=== PATIENT | female | born 1960 | race Caucasian/White ===

== ENCOUNTER → 2018-02-28 18:17 | Outpatient (CLI) | payer OTHER, SELFPAY ==
--- NOTE | 2018-02-28 18:24 | DI.MRI.S_ITS ---
PROCEDURE: MR LUMBAR SPINE WO CON INDICATIONS: LOW BACK PAIN TECHNIQUE: Noncontrast sagittal T1 spin echo and T2 fast echo, sagittal STIR, axial T1 and T2 fast spin echo through the lumbar spine. In cases with scoliosis, additional coronal T2 fast spin echo may be performed. COMPARISON: [facility], MR, L-SPINE WITHOUT CONTRAST, 02/20/2014, 7:57. FINDINGS: Image quality: Diagnostic. Spinal Cord: The imaged portions of the spinal cord are normal in size and signal. The conus medullaris is normal in position. Incidental note is made of a very small fatty filum terminale, which is best appreciated within the region of the sacrum. Paraspinous Soft Tissues: No paravertebral masses. Image soft tissues of the abdomen and pelvis are grossly unremarkable; however, not adequately evaluated on this exam. The abdominal aorta is normal in course and caliber. Bones: The vertebral body heights and marrow signal are within normal limits. There is no acute fracture or dislocation. No suspicious osseous lesions are identified. There is grade 1 anterolisthesis of L4 and L5, which is similar to the previous examination. No obvious pars interarticularis defects are identified. No additional areas of significant spondylolisthesis are identified. Lower thoracic levels: Disc height loss and a moderate posterior disc bulges are present at the levels of T10-T11 and T11-T12. This is more pronounced at the level of T11-T12 with moderate central canal stenosis present. No abnormal signal within the cord at this level is evident. There may be mild neural foraminal narrowing at these levels bilaterally. L1-L2: No significant disc bulge is present. There is mild facet arthrosis. There is no central canal or neural foraminal stenosis. L2-L3: There is disc desiccation and diffuse disc bulge with mild to moderate bilateral facet arthrosis. No central canal stenosis is identified. There is mild bilateral neural foraminal narrowing. The degree of facet arthropathy slightly more prominent on the current examination. L3-L4: There is disc desiccation and diffuse disc bulge with moderate bilateral facet arthrosis and ligamentum flavum laxity. These findings result in mild central canal stenosis and moderate bilateral neural foraminal narrowing. The degree of neural foraminal narrowing is less prominent on the current study. L4-L5: Grade 1 anterolisthesis of L4 and L5 is identified, which has not significantly progressed. Fatty degenerative endplate changes are identified at this location. There is no diffuse disc bulge and disc desiccation. Moderate to severe facet arthrosis is noted. These findings result in moderate to severe central canal stenosis and severe bilateral neural foraminal stenosis (right greater than left). These findings have not significantly progressed in the interim. L5-S1: There is disc desiccation and mild diffuse disc bulge with moderate to severe bilateral facet arthrosis (left greater than right close parentheses. These findings result in severe left and moderate right neural foraminal narrowing. No central canal stenosis is identified. These findings are slightly more prominent on the current study. IMPRESSION: 1. Advanced multilevel degenerative changes of the lumbar spine have mildly progressed in the interim. Overall, the degree of central canal and neural foraminal narrowing is relatively similar to the previous study. 2. No focal disc protrusions or extrusions. 3. Grade 1 spondylolisthesis at L4-5 is not significantly progressed. 4. Prominent posterior disc bulges at the imaged lower thoracic levels are not well characterize, but demonstrate areas of mild central canal narrowing. Dictated by: Raulito Mcmahon M.D. on 03/01/2018 at 9:25 Approved by: Raulito Mcmahon M.D. on 03/01/2018 at 9:35
== END ==
PROVIDERS: Family Provider Family Medicine; PCP Family Medicine; Visit Provider Family Medicine
DX: M51.36 Other intervertebral disc degeneration, lumbar region (principal); M43.16 Spondylolisthesis, lumbar region
CPT/HCPCS: 72148

== ENCOUNTER 2018-03-20 11:36 | Day surgery (SDC) | payer OTHER, SELFPAY ==
--- NOTE | 2018-03-20 | PATH_ITS ---
[facility] Accession Number: [id number] . 01 Material submitted: . PART A: COLON POLYP AT 30CM PART B: TRANSVERSE COLON POLYP . 02 Diagnosis: A. Colon, Polyp at 30 cm, Biopsy: Tubular adenoma. . B. Transverse Colon, Polyp, Biopsy: Tubular adenoma. MRV/03/22/2018 . 02 Electronically signed: . Larissa Santana MD, Pathologist NPI- [id number] . 01 Gross description: . Part A: COLON POLYP AT 30CM: Received in formalin is 1 fragment(s) of valles, soft tissue measuring 0.3 x 0.3 x 0.3 cm submitted entirely in 1 cassette(s) Part B: TRANSVERSE COLON POLYP: Received in formalin is 1 fragment(s) of valles, soft tissue measuring 0.6 x 0.4 x 0.3 cm which is bisected and submitted entirely in 1 cassette(s) /TRC /TRC . 02 Pathologist provided ICD-10: D12.6, D12.3 . 02 CPT . 487912, [id number] Performed at: 01 [facility] [address] [id number] MD Niraj Cazares MD Phone: [phone] Performed at: 02 [facility] [address] [place], [place] [id number] MD Adarsh Arzola MD Phone: [phone]
[2018-03-20 12:11] VITALS: BP 134/90; PULSE 67; RESP 16; TEMP 36.7; O2SAT 99; BMI 30.3
[2018-03-20] MEDS: SODIUM CHLORIDE 0.9% 1,000 ML 200 ML IV (12:11)
--- NOTE | 2018-03-20 13:25 | PM.HP.1 ---
History of Present Illness Date Patient Seen: 03/20/18 Time Patient Seen: 13:25 Chief complaint: [id number] SCREENING COLONOSCOPY Narrative: Marychuy 57-year-old lady here for her 2nd colonoscopy. She reports that she had a colonoscopy about 5 years ago. She reports that that time some benign polyps were removed. She denies any problems or symptoms related to the function of her GI tract. She reports she needs a colonoscopy as part of health maintenance program. Patient History Medical History History of colon polyps (Acute) Family & Social History Family History: Reviewed 03/20/18 by Deisy Vargas MD Social History: household members spouse Meds Home Medications Medication Instructions Recorded Confirmed Type gabapentin 300 mg PO TID 03/20/18 03/20/18 History meloxicam 7.5 mg PO DAILY 03/20/18 03/20/18 History Allergies Allergy/AdvReac Type Severity Reaction Status Date / Time codeine Allergy Unknown Unverified 03/20/18 12:20 Review of Systems Review of Systems All systems reviewed & are unremarkable except as noted in HPI and below Exam Vital Signs (past 8 hours): Vital Signs - 8 hr 03/20/18 12:11 Temperature 98.1 F Pulse Rate 67 Respiratory Rate 16 Blood Pressure 134/90 H Pulse Oximetry 99 Pulse Oximetry 99 Oxygen Delivery Method Room Air Narrative Exam Narrative: Very pleasant and healthy-appearing lady in no obvious distress HEENT: Normocephalic and atraumatic, pupils equal round reactive to light accommodation with anicteric sclera Lungs: Clear bilaterally Heart: Regular rate and rhythm Abdomen: Soft, nontender, active bowel sounds. Extremities: Warm and well perfused Assessment & Plan (1) Encounter for screening colonoscopy: Problem details: Personal history of colon polyps here for screening colonoscopy. We discussed the risks and benefits of the procedure the patient expressed a desire to continue Current visit: Yes Status: Acute Plan: Assessment/Plan Narrative: Personal history of colon polyps here for screening colonoscopy. We discussed the risks and benefits of the procedure the patient expressed a desire to continue
--- NOTE | 2018-03-20 13:28 | SUR.OPER ---
to endo from opd via cart respirations unlabored iv patent positioned per self for procedure
--- NOTE | 2018-03-20 13:29 | P.HP_ITS ---
History of Present Illness Date Patient Seen: 03/20/18 Time Patient Seen: 13:25 Chief complaint: [id number] SCREENING COLONOSCOPY Narrative: Marychuy 57-year-old lady here for her 2nd colonoscopy. She reports that she had a colonoscopy about 5 years ago. She reports that that time some benign polyps were removed. She denies any problems or symptoms related to the function of her GI tract. She reports she needs a colonoscopy as part of health maintenance program. Patient History Medical History History of colon polyps (Acute) Family & Social History Family History: Reviewed 03/20/18 by Deisy Vargas MD Social History: household members spouse Meds Home Medications Medication Instructions Recorded Confirmed Type gabapentin 300 mg PO TID 03/20/18 03/20/18 History meloxicam 7.5 mg PO DAILY 03/20/18 03/20/18 History Allergies Allergy/AdvReac Type Severity Reaction Status Date / Time codeine Allergy Unknown Unverified 03/20/18 12:20 Review of Systems Review of Systems All systems reviewed & are unremarkable except as noted in HPI and below Exam Vital Signs (past 8 hours): Vital Signs - 8 hr 3 03/20/18 12:11 Temperature 98.1 F Pulse Rate 67 Respiratory Rate 16 Blood Pressure 134/90 H Pulse Oximetry 99 Pulse Oximetry 99 Oxygen Delivery Method Room Air Narrative Exam Narrative: Very pleasant and healthy-appearing lady in no obvious distress HEENT: Normocephalic and atraumatic, pupils equal round reactive to light accommodation with anicteric sclera Lungs: Clear bilaterally Heart: Regular rate and rhythm Abdomen: Soft, nontender, active bowel sounds. Extremities: Warm and well perfused Assessment & Plan (1) Encounter for screening colonoscopy: Problem details: Personal history of colon polyps here for screening colonoscopy. We discussed the risks and benefits of the procedure the patient expressed a desire to continue Current visit: Yes Status: Acute Plan: Assessment/Plan Narrative: Personal history of colon polyps here for screening colonoscopy. We discussed the risks and benefits of the procedure the patient expressed a desire to continue
--- NOTE | 2018-03-20 13:55 | SUR.OPER ---
tolerated procedure well
--- NOTE | 2018-03-20 13:55 | PM.OP.1 ---
Operative Date/Time/Diagnoses - Date of procedure: 03/20/18 Time of procedure: 13:55 Pre-op diagnosis: Personal history of colon polyps Screening Post-op diagnosis: same Procedure & Clinicians Procedure: Colonoscopy to the cecum with polypectomy x2 Same procedure as scheduled: Yes Indications: Last colonoscopy 5 years ago with removal of benign polyps Surgeon: Deisy Vargas Click Yes if Unassisted: Yes Anesthesia Type: Sedation (Versed 4 mg; fentanyl 150 mcg) Operative Notes Findings: 1. Excellent prep 2. Two pedunculated polyps at 30 cm and mid transverse colon respectively. Both were removed with snare and cautery and retained for pathology. The 1st polyp was approximately 4 mm and the 2nd polyp was approximately 8 mm 3. No AV malformations 4. Minimal diverticulosis limited to the junction of the descending and sigmoid colons 5. Grade 1 internal hemorrhoids Closure Type: not applicable Specimen(s): other (1. Polyp at 30 cm removed with snare and cautery, 2. Polyp at mid transverse colon removed with snare cautery) Estimated Blood Loss (mL): 1 Procedure in detail: After obtaining informed consent, the patient was brought to the GI suite and placed in the left lateral decubitus position on the examination table. After placement of appropriate monitors, the patient was given incremental doses of Versed and Fentanyl until an appropriate level of sedation was achieved. A time out was held per SCOAP protocol. A digital rectal examination was performed and did not reveal any masses or obstructing lesions. The colonoscope was gently passed into the patient's anus and the entire colon navigated to the level of the cecum with minimal difficulty. Once in the cecum, the scope was withdrawn being sure to go before and beyond all mucosal folds and prominences and get an excellent examination. The findings are noted above. At the level of the rectal vault, the scope was retroflexed and the internal anal canal was examined. The scope was straightened and air aspirated from the colon. The instrument was removed from the patient's body and the procedure was concluded. The patient was allowed to awaken from sedation without difficulty and taken to the post-anesthesia care unit in good condition. Total sedation time 27 min Total withdrawal time 14 min Complications: none Condition: stable Disposition: PACU Plan for aftercare: 1. Discharge to home 2. Plan for next colonoscopy in 3 years due to the size of the 2nd polyp
[2018-03-20 13:58] VITALS: BP 97/63; PULSE 58; RESP 17; TEMP 36.2; O2SAT 97
[2018-03-20] MEDS: fentaNYL 250 MCG/5 ML INJ 150 MCG IV (13:58)
[2018-03-20] MEDS: MIDAZOLAM 5 MG/5 ML VIAL 4 MG IV (13:58)
[2018-03-20 14:01] VITALS: BP 109/77; PULSE 62; RESP 14; O2SAT 96
[2018-03-20 14:06] VITALS: BP 107/74; PULSE 55; RESP 14; O2SAT 96
[2018-03-20 14:22] VITALS: BP 112/76; PULSE 53; RESP 15; TEMP 36.3; O2SAT 96
== END 2018-03-20 14:35 | disposition home or self-care (01) ==
PROVIDERS: Family Provider Family Medicine; PCP Family Medicine; Visit Provider Surgery
PROC: 0DJD8ZZ Inspection of Lower Intestinal Tract, Via Natural or Artificial Opening Endoscopic (ICD-10-PCS; CPT 45378; principal; 2018-03-20 13:00)
DX: Z86.010 Personal history of colon polyps (principal); K57.30 Diverticulosis of large intestine without perforation or abscess without bleeding; K64.0 First degree hemorrhoids; D12.6 Benign neoplasm of colon, unspecified; D12.3 Benign neoplasm of transverse colon
CPT/HCPCS: 45385; 45380; 99152; 99153; J2250; J3010

== ENCOUNTER → 2018-07-17 19:07 | Outpatient (CLI) | payer OTHER, SELFPAY ==
--- NOTE | 2018-07-17 19:08 | DI.MRI.S_ITS ---
PROCEDURE: MR CERVICAL SPINE WO CON INDICATIONS: numbness in hands TECHNIQUE: Noncontrast sagittal T1 spin echo and T2 fast spin echo, sagittal STIR, foraminal oblique sagittal T2 fast spin echo, and axial gradient echo or T2 fast spin echo through the cervical spine. COMPARISON: [facility], CR, CERVICAL SPINE 2 OR 3 VIEWS, 05/27/2016, 14:38. [facility], MR, C-SPINE WITHOUT CONTRAST, 06/15/2016, 18:41. FINDINGS: Image quality: Excellent. Alignment and Curvature: There is trace C3-C4 retrolisthesis. There is trace C4-C5 anterolisthesis. Bones: Reactive endplate change is noted adjacent to the C5-C6 and C6-C7 discs. Anterior endplate osteophytes noted adjacent to the C3-C4, C5-C6, C6-C7 and C7-T1 discs. Spinal Cord: Visualized spinal cord has normal size and signal. No cerebellar tonsillar herniation. Paraspinous Soft Tissues: No paravertebral masses. Prevertebral soft tissues are normal in thickness. C2-C3: Slight loss of disc signal. No central stenosis. No neural foraminal narrowing. No neural impingement. C3-C4: Loss of disc signal and disc height. Moderate, diffuse disc bulge. Moderate narrowing of the central canal. Mild bilateral facet hypertrophy. Moderate bilateral uncovertebral joint hypertrophy. Moderate right and severe left neural foraminal narrowing with flattening deformity exiting left C4 nerve root. C4-C5: Loss of disc signal. Mild, diffuse disc bulge. Mild narrowing of the central canal. Mild bilateral facet hypertrophy. No neural foraminal narrowing. No neural impingement. C5-C6: Loss of disc signal and height. Mild, diffuse disc bulge. Mild to moderate narrowing of the central canal. Moderate right and mild left uncovertebral joint hypertrophy. Moderate right and mild left neural foraminal narrowing. No neural impingement. C6-C7: Loss of disc signal and height. Mild, diffuse disc bulge. Mild narrowing of the central canal. Mild left uncovertebral joint hypertrophy. Moderate left neural foraminal narrowing. No neural impingement. C7-T1: Loss of disc signal and height. Moderate, diffuse disc bulge. Mild ligamentum flavum hypertrophy. Moderate narrowing of the central canal. Mild bilateral facet hypertrophy. Mild bilateral uncovertebral joint hypertrophy. Severe bilateral neural foraminal narrowing with flattening deformity exiting C8 nerve roots. IMPRESSION: 1. Multilevel degenerative disc disease. 2. Multilevel facet arthropathy. 3. Moderate C3-C4 and C7-T1 central canal narrowing. Mild to moderate C5-C6 central canal narrowing. Mild C4-C5 and C6-C7 central canal narrowing. 4. Severe bilateral C7-T1 neural foraminal narrowing. Moderate right and severe left C3-C4 neural foraminal narrowing. Moderate right and mild left C5-C6 neural foraminal narrowing. Moderate left C6 on C7 neural foraminal narrowing. 5. Flattened deformity of the exiting left C4 nerve root and the exiting bilateral C8 nerve roots secondary to neural foraminal narrowing. Please correlate with clinical data. Dictated by: Mariam Mora MD, PhD on 07/18/2018 at 9:50 Approved by: Mariam Mora MD, PhD on 07/18/2018 at 10:00
== END ==
PROVIDERS: Family Provider Family Medicine; PCP Family Medicine; Visit Provider Physical Medicine & Rehabilitation
DX: M50.31 Other cervical disc degeneration, high cervical region (principal); M47.812 Spondylosis without myelopathy or radiculopathy, cervical region; M48.02 Spinal stenosis, cervical region; R20.0 Anesthesia of skin
CPT/HCPCS: 72141

== ENCOUNTER 2018-08-28 07:24 | Outpatient (CLI) | payer OTHER, SELFPAY ==
[2018-08-28] VITALS (9 sets, daily range): BP systolic 115–133; BP diastolic 74–87; PULSE 70–78; RESP 16–18; TEMP 36.1; O2SAT 97–98
--- NOTE | 2018-08-28 07:25 | DI.RAD.S_ITS ---
PROCEDURE: PAIN C/T INTERLAMINAR INJECT INDICATIONS: CERVICAL DISC DISPLACEMENT FINDINGS: Fluoroscopic spot filming was performed to verify placement of spinal needles at the C7-T1 level(s), as labeled on the films. Appropriate location(s) of the needle tip(s) was confirmed by injection of iodinated contrast. IMPRESSION: Fluoroscopy for pain management. Dictated by: Luis Reddy M.D. on 08/28/2018 at 14:54 Approved by: Luis Reddy M.D. on 08/28/2018 at 14:55
[2018-08-28] MEDS: MIDAZOLAM 5 MG/5 ML VIAL IV (08:37)
[2018-08-28] MEDS: IOPAMIDOL 15 ML VIAL 3 ML INJ (08:45)
[2018-08-28] MEDS: DEXAMETHASONE 10 MG/ML VIAL 30 MG INJ (08:45)
[2018-08-28] MEDS: LIDOCAINE 1% 20 ML INJ 5 ML INJ (08:46)
--- NOTE | 2018-08-28 08:49 | PC.NURSE ---
ASSISTING PT OFF PROC TABLE AND TRANSPORTING TO POST PROC AREA IN STABLE CONDITION
--- NOTE | 2018-08-28 08:54 | PM.PROC.1 ---
Procedures Date/Time Date of procedure: 08/28/18 Time of procedure: 08:54 General Procedure description: PREOP DIAGNOSIS 1. CERVICAL STENOSIS, 2. CERVICAL HNP WITH UPPER EXTREMITY RADICULAR FEATURES, POST OP DIAGNOSIS 1. CERVICAL STENOSIS, 2. CERVICAL HNP WITH UPPER EXTREMITY RADICULAR FEATURES, PROCEDURES 1. FLUORSCOPICALLY GUIDED CONTRAST CONTROLLED INTERLAMINAR EPIDURAL STEROID INJECTION - C7/T1 TL DIOGO, PHYSICIAN: Maximilian Scott DO INDICATIONS: Ce is referred by Dr. Walden for treatment of Cervical Stenosis. FINDINGS Cervical Stenosis due to disc deterioration and nerve root irritation and nerve root irritation DESCRIPTION OF PROCEDURE Fluoroscopically guided, contrast-controlled C7/T1 translaminar epidural steroid injection with conscious sedation. Following denial of allergy and review of potential side effects and complications, including, but not necessarily limited to, infection, allergic reaction, local tissue breakdown, temporary as well as permanent nerve injury, stroke, paralysis, and possible , the patient indicated that patient understood and agreed to proceed. An informed consent document was signed by the patient, witnessed by a nurse, and placed in the patient's chart. Additionally, other treatment options including modalities, medications, and physical therapy were reviewed with the patient. After review of previous anaesthesic history and IV conscious sedation the patient was deemed safe to proceed with todays procedure with IV conscious sedation as ASA class II designation. Safety time-out was performed to confirm patient ID, procedure to be performed and site of procedure. IV sedation was accomplished with a combination of 4mg of Versed administered by the RN after DO order, titrated to patient comfort during the course of the procedure while the patient remained responsive to all verbal commands. In the prone position, following sterile prep and drape of the cervical region, the C7/T1 translaminar space was identified fluoroscopically. The skin was anesthetized via a 25-gauge 1.5-inch needle with 1% lidocaine solution. At this point, a 25-gauge, 2.5-inch short bevel spinal needle was atraumatically introduced and advanced under fluoroscopic guidance into epidural space at the C7/T1 translaminar space. Depth was confirmed on lateral view. Radiological data, including multiple fluoroscopic views of the cervical spine, reveal a spinal needle at the C7/T1 translaminar space. Lateral views then show placement of the needle in the epidural space. Subsequent views show contrast material flowing superiorly and inferiorly in the epidural space. DSA fluoroscopy with live contrast injection, once again, confirmed no vascular or intrathecal uptake. At this point, using loss of resistance technique with saline and air, the epidural space was entered. Following negative aspiration, injection of approximately 1.5 cc of Isovue-200 with live fluoroscopy in the AP view confirmed epidural flow in the epidural space without vascular or intrathecal uptake observed. Subsequently, a test dose of 1 cc of 1% lidocaine solution was injected and patient was observed for two minutes without signs or symptoms of complications, including abdominal pain, shortness of breath, bilateral upper or lower extremity weakness, nausea and vomiting, prior to steroid injection. At this point, 3 cc or 30 mg of dexamethasone was then injected without incident. The patient tolerated the procedure well without signs or symptoms of complications prior to transfer to the recovery area for further monitoring The patient was then transferred to the recovery area where they were observed for an appropriate period of time after the injection. The patient reported a VAS score of 6 prior to the procedure and a post-procedure VAS of 0. Total Fluoroscopy Time: 23.2 seconds Total Conscious Sedation Time: 24min POST OP INSTRUCTIONS The patient was provided a Pain Log to continue to record their response to the target-specific procedure prior to follow-up visit with the referring provider. Additionally, specific post-injection care instructions and a contact number to our office were provided if concerns arise regarding possible complications associated with the procedure are suspected. Maximilian Scott DO Complications: none
--- NOTE | 2018-08-28 09:30 | PC.NURSE ---
0856 pt came back from procedure awake and alert able to transfer to chair from w/c. Resumed monitoring.
--- NOTE | 2018-08-29 13:06 | PC.NURSE ---
FOLLOW UP CALL MADE. PT DENIES PAIN AT THIS TIME AND DENIES QUESTIONS/CONCERNS. REMINDED PT TO CONTINUE WITH PAIN LOG AND THAT CLINIC NUMBER IS ON BACK OF LOG IF SHE NEEDS IT. PT VERBALIZED UNDERSTANDING.
== END 2018-08-28 09:44 ==
LOC: RAD 07:24
PROVIDERS: Family Provider Family Medicine; PCP Family Medicine; Visit Provider Physical Medicine & Rehabilitation
DX: M48.02 Spinal stenosis, cervical region (principal); M50.13 Cervical disc disorder with radiculopathy, cervicothoracic region
CPT/HCPCS: 62321; 99152; J1100; J2250

== ENCOUNTER → 2018-12-14 09:16 | Outpatient (CLI) | payer OTHER, SELFPAY ==
--- NOTE | 2018-12-14 | DI.MRI.S_ITS ---
PROCEDURE: MR KNEE RT WO CON INDICATIONS: INTERNAL DERANGEMENT RIGHT KNEE TECHNIQUE: Noncontrast sagittal PD fast spin echo and T2 fast spin echo with fat saturation, sagittal 3-D FLASH with fat saturation; coronal T1 spin echo and PD fast spin echo with fat saturation, and axial PD fast spin echo with fat saturation through the knee. COMPARISON: [facility], MR, KNEE WITHOUT CONTRAST, 06/01/2017, 17:31. FINDINGS: Image quality: Excellent. Menisci: Ill-defined tear of the posterior horn and medial meniscus, with abnormal signal extending to the undersurface and mild partial extrusion. Lateral meniscal tear also noted involving the posterior horn and body. Possible 4 mm posterior para-meniscal cyst on image 8 series 7 although technically indeterminate Cruciate ligaments: Anterior cruciate ligament is not well visualized. There is heterogeneous signal in its expected location and some possible intact fibers however not well visualized. There is also cystic appearing lesions in particular involving the anterior intercondylar notch which have progressed since 06/01/17. Posterior cruciate ligament appears grossly intact. Prominent intraosseous ganglion cyst seen at the tibial eminence. Medial structures: The medial collateral ligament appears intact. The posterior oblique ligament, semimembranosus tendon insertions, oblique popliteal ligament, and meniscocapsular junction appear intact. Visualized portions of the pes anserinus tendons appear normal. No abnormal bursal fluid. Lateral structures: The lateral collateral ligament, long and short heads of the biceps femoris tendon appear intact. The popliteus tendon appears normal; the popliteofibular ligament appears intact. The posterosuperior and anteroinferior popliteomeniscal fascicles appear intact. The arcuate and fabellofibular ligaments appear intact, on either side of the lateral inferior geniculate artery. Iliotibial band appears normal. Anterior structures: Chronic low signal thickening of the quadriceps tendon which may represent chronic mild tendinopathy. There is prepatellar and superficial infrapatellar subcutaneous edema. Proximal mild patellar tendinopathy with low-grade intrasubstance signal change. Bones and cartilage: No focal marrow contusion or discrete low signal fracture line. Within the medial compartment, diffuse partial-thickness loss of the femoral and tibial articular cartilage. Within the lateral compartment, there is diffuse partial-thickness loss of the femoral and tibial articular cartilage. Within the patellofemoral compartment, diffuse partial-thickness of the patellar and femoral trochlear cartilage. Joint space: Small-moderate joint effusion. Dempsey's cyst is seen with possible internal debris or synovitis, for example image 121 series 8. It measures approximately 3.0 cm in the cephalocaudad dimension. No definite intra-articular loose bodies. IMPRESSION: Anterior cruciate ligament not well visualized with heterogeneous signal and cystic changes in its expected location. This suggests advanced mucoid degeneration, progressed since the prior study dated 06/01/17. Please correlate with exam findings. Differential includes age-indeterminate high-grade partial or complete rupture of the ACL. Technically, cannot exclude postsurgical/posttraumatic arthrofibrosis given the appearance of the anterior intercondylar notch. Medial meniscal tear involving the posterior horn and body, with mild partial extrusion. Lateral meniscal tear involving the posterior horn and body. Tricompartmental degeneration. Small to moderate joint effusion. Dempsey cyst, possibly with internal debris as above. Dictated by: Oneil Dexter M.D. on 12/14/2018 at 12:56 Approved by: Oneil Dexter M.D. on 12/14/2018 at 13:07
== END ==
PROVIDERS: Family Provider Family Medicine; PCP Family Medicine; Visit Provider Family Medicine
DX: S83.281A Other tear of lateral meniscus, current injury, right knee, initial encounter (principal); S83.241A Other tear of medial meniscus, current injury, right knee, initial encounter; M17.11 Unilateral primary osteoarthritis, right knee; M25.461 Effusion, right knee; M71.21 Synovial cyst of popliteal space [Baker], right knee
CPT/HCPCS: 73721

== ENCOUNTER → 2019-10-23 16:15 | Outpatient (CLI) | payer OTHER, SELFPAY ==
--- NOTE | 2019-10-23 | DI.MG.S_ITS ---
BILATERAL DIGITAL SCREENING MAMMOGRAM 3D/2D WITH CAD: 10/23/2019 CLINICAL: Routine screening. Comparison is made to exams dated: 05/11/2017 mammogram, 11/07/2013 mammogram, and 11/06/2012 mammogram - [facility]. The tissue of both breasts is heterogeneously dense. This may lower the sensitivity of mammography. Current study was also evaluated with a Computer Aided Detection (CAD) system. No significant masses, calcifications, or other findings are seen in either breast. There has been no significant interval change. IMPRESSION: NEGATIVE There is no mammographic evidence of malignancy. A 1 year screening mammogram is recommended. This exam was interpreted at Station ID: [id number]. NOTE: For mammograms, a report in lay terms will be sent to the patient. Approximately 15% of breast malignancies will not be visualized mammographically. In the management of a palpable breast mass, a negative mammogram must not discourage biopsy of a clinically suspicious lesion. Electronically Signed By: Milli yen/charan:10/23/2019 17:02:53 letter sent: Normal Exam ACR BI-RADS Category 1: Negative 3341F
== END ==
PROVIDERS: Family Provider Family Medicine; PCP Family Medicine; Visit Provider Family Medicine
DX: Z12.31 Encounter for screening mammogram for malignant neoplasm of breast (principal)
CPT/HCPCS: 77063; 77067

== ENCOUNTER 2019-11-26 15:02 | Outpatient (CLI) | payer OTHER, SELFPAY ==
[2019-11-26] VITALS (7 sets, daily range): BP systolic 116–141; BP diastolic 70–95; PULSE 60–69; RESP 16; TEMP 36.5; O2SAT 96–98
--- NOTE | 2019-11-26 15:05 | DI.RAD.S_ITS ---
PROCEDURE: PAIN L/S TRANSFORAMINAL INJECT INDICATIONS: SPINAL STENOSIS FINDINGS: Fluoroscopic spot filming was performed to verify placement of spinal needles at the left L4-5 level(s), as labeled on the films. Appropriate location(s) of the needle tip(s) was confirmed by injection of iodinated contrast. IMPRESSION: Imaging confirms appropriate position for left L4-5 transforaminal steroid injection. Dictated by: Elena Nowak M.D. on 11/26/2019 at 18:18 Approved by: Elena Nowak M.D. on 11/26/2019 at 18:19
[2019-11-26] MEDS: MIDAZOLAM 5 MG/5 ML VIAL IV (15:54)
[2019-11-26] MEDS: fentaNYL 100 MCG/2 ML INJ 50 MCG IV (15:55)
[2019-11-26] MEDS: BUPIVACAINE 0.25% (PF) VIAL 2 ML INJ (15:58)
[2019-11-26] MEDS: BETAMETHASONE 30 MG/5 ML MDV 6 MG INJ (15:58)
[2019-11-26] MEDS: IOPAMIDOL 15 ML VIAL 3 ML INJ (15:58)
[2019-11-26] MEDS: DEXAMETHASONE 10 MG/ML VIAL 20 MG INJ (15:59)
--- NOTE | 2019-11-26 16:01 | PC.NURSE ---
ASSISTING PT OFF TABLE AND TRANSPORTING TO POST PROC AREA IN STABLE CONDITION. PASSING RN CARE OF PT OFF TO JOSH Brown RN.
--- NOTE | 2019-11-26 16:06 | P.PCN_ITS ---
Procedures Date/Time Date of procedure: 11/26/19 Time of procedure: 16:06 General Procedure description: PREOP DIAGNOSIS 1. FORMAINAL STENOSIS WITH LE SYMPTOMS POST OP DIAGNOSIS 1. FORMAINAL STENOSIS WITH LE SYMPTOMS PROCEDURES 1. FLUOROSCOPICALLY GUIDED CONTRAST CONTROLLED TRANSFORAMINAL EPIDURAL STEROID INJECTION - LEFT L4/5 PHYSICIAN: Maximilian Scott DO INDICATIONS: Ce is referred by for treatment of Foraminal Stenosis with Left LE Symptoms FINDINGS Foraminal Nerve Root Compression secondary to disc disease and facet hypertrophy DESCRIPTION OF PROCEDURE: Following review of allergy and review of potential side effects and complications, including, but not necessarily limited to, infection, allergic reaction, local tissue breakdown, stroke, temporary or permanent nerve injury, paralysis, and possible , the patient indicated that the patient understood and agreed to proceed. An informed consent document was signed by the patient, witnessed by a nurse, and placed in the patient's chart. Additionally, other treatment options including medications, modalities, and physical therapy were reviewed with the patient. After review of previous anaesthesic history and IV conscious sedation the pat ient was deemed safe to proceed with todays procedure with IV conscious sedation as ASA class II designation. Safety time-out was performed to confirm patient ID, procedure to be performed and site of procedure. IV sedation was accomplished with a combination of 3mg of Versed and 50mcg of Fentanyl administered by the RN after DO order, titrated to patient comfort during the course of the procedure while the patient remained responsive to all verbal commands In the prone position following sterile prep and drape of the lumbar region, the left L4/5 posterior neuroforamen was identified fluoroscopically. The skin was anesthetized via a 25-gauge 1.5-inch needle with 1% lidocaine solution. At this point, a 22-gauge 5-inch spinal needle was atraumatically introduced and advanced under fluoroscopic guidance through the posterior left L4/5 neuroforamen to approximately the anterior aspect of the canal. Depth was confirmed on lateral view. Following negative aspiration, injection of appr oximately 1.5 cc of Isovue 200 under live fluoroscopy in the AP view confirmed excellent flow along the nerve root, into the epidural space without vascular or intrathecal uptake observed Radiological data, including multiple fluoroscopic views of the lumbosacral spine, reveal a spinal needle at the left L4/5 posterior neuroforamen. Subsequent views show flow of contrast material flowing superiorly and inferiorly along the nerve root confirming epidural flow. Subsequently, a test dose of 1.5 cc of 1% lidocaine solution was administered and patient was observed for two minutes for signs or symptoms of complications, including abdominal pain, shortness of breath, bilateral upper or lower extremity weakness, nausea and vomiting, prior to steroid injection. At this point, a total of 3cc or 20mg of dexamethasone and 6mg of betamethasone was injected without incident. The procedure tolerated the procedure well without signs or symptoms of complications prior to transfer to the recovery area continued monitoring without incident. The patient was then transferred to the recovery area where they were observed for an appropriate time after the injection. The patient reported a VAS score of 7 prior to the procedure and a post- procedure VAS of 0. Total Fluoroscopy Time: 10 seconds Total Conscious Sedation Time: 24min POST OP INSTRUCTIONS The patient was provided a Pain Log to continue to record their response to the target-specific procedure prior to follow-up visit with their referring physician. Additionally, specific post-injection care instructions and a contact number to our office were provided if concerns arise regarding possible complications associated with the procedure are suspected. Maximilian Scott, Complications: none
--- NOTE | 2019-11-26 16:42 | PC.NURSE ---
1619: Received patient post procedure, awake, alert, and pleasant. VSS upon arrival. Dank criteria WNL. awaiting in lobby for discharge.
== END 2019-11-26 16:30 | disposition home or self-care (01) ==
PROVIDERS: Family Provider Family Medicine; PCP Family Medicine; Referring Provider Physical Medicine & Rehabilitation; Visit Provider Physical Medicine & Rehabilitation
DX: M48.061 Spinal stenosis, lumbar region without neurogenic claudication (principal); M51.16 Intervertebral disc disorders with radiculopathy, lumbar region
CPT/HCPCS: 64483; 99152; J0702; J1100; J2250; J3010

== ENCOUNTER → 2020-03-16 16:17 | Outpatient (CLI) | payer OTHER, SELFPAY ==
--- NOTE | 2020-03-16 16:18 | DI.MRI.S_ITS ---
PROCEDURE: MR CERVICAL SPINE WO CON INDICATIONS: Spinal stenosis with left lower extremity paresthesias TECHNIQUE: Noncontrast sagittal T1 spin echo and T2 fast spin echo, sagittal STIR, foraminal oblique sagittal T2 fast spin echo, and axial gradient echo or T2 fast spin echo through the cervical spine. COMPARISON: [facility], MR, MR CERVICAL SPINE WO CON, 07/17/2018, 19:14. [facility], MR, MR LUMBAR SPINE WO CON, 03/16/2020, 17:11. [facility], MR, C-SPINE WITHOUT CONTRAST, 06/15/2016, 18:41. FINDINGS: Image quality: Diagnostic, with note made of motion artifact. Alignment and Curvature: There is straightening of the normal cervical lordosis. There is minimal retrolisthesis seen at the C7-T1 level. Bone Marrow: Marrow demonstrates normal overall signal. Spinal Cord: Visualized spinal cord has normal size and signal. No cerebellar tonsillar herniation. Paraspinous Soft Tissues: No paravertebral masses. Prevertebral soft tissues are normal in thickness. C2-C3: No significant abnormality is seen. C3-C4: Moderate loss of disc height is seen. Loss of disc signal is seen. Moderate disc osteophyte complex is seen, which is eccentric to the left. There is mild to moderate right-sided and moderate left-sided facet hypertrophy seen. There is moderate to severe left-sided and moderate right-sided neural foraminal narrowing seen. Mild to moderate central canal narrowing is seen. When comparison is made with the prior examination, these findings are similar. C4-C5: The disc height is well-preserved. Loss of disc signal is seen at this level. A mild degree of generalized disc osteophyte complex is seen. Mild facet joint hypertrophy is seen. There is moderate to severe left-sided and moderate right-sided neural foraminal narrowing seen. Mild to moderate central canal narrowing is seen. There is progression of degenerative change compared to 2018. C5-C6: Moderate loss of disc height is seen. Loss of disc signal is seen. Moderate to prominent disc osteophyte complex is seen, which is eccentric to the right. There is moderate to severe right-sided and at least moderate left-sided neural foraminal narrowing seen. Moderate central canal narrowing is seen. There is associated mass effect upon the ventral spinal cord. Mild progression compared to the prior. C6-C7: Moderate loss of disc height is seen. Loss of disc signal is seen. At least moderate disc osteophyte complex is seen, which is eccentric to the left side. There is moderate to severe left-sided and at least moderate right-sided neural foraminal narrowing seen. Mild to moderate central canal narrowing is seen. Mild progression compared to the prior. C7-T1: There is at least moderate loss of disc height and disc signal seen. Moderate disc osteophyte complex is seen, which is eccentric to the left. There is moderate to severe left-sided and at least moderate right-sided neural foraminal narrowing seen. [id number] central canal narrowing is seen. When comparison is made with the prior examination, these findings are similar. IMPRESSION: Multiple levels of cervical spine degenerative change are seen, which have overall mildly progressed compared to 2018. Dictated by: Clive Choudhary M.D. on 03/16/2020 at 16:33 Approved by: Clive Choudhary M.D. on 03/16/2020 at 16:39
--- NOTE | 2020-03-16 16:18 | DI.MRI.S_ITS ---
PROCEDURE: MR LUMBAR SPINE WO CON INDICATIONS: Spinal stenosis with left lower extremity paresthesias TECHNIQUE: Noncontrast sagittal T1 spin echo and T2 fast echo, sagittal STIR, axial T1 and T2 fast spin echo through the lumbar spine. In cases with scoliosis, additional coronal T2 fast spin echo may be performed. COMPARISON: [facility], MR, MR LUMBAR SPINE WO CON, 02/28/2018, 18:23. [facility], MR, MR CERVICAL SPINE WO CON, 03/16/2020, 16:56. [facility], MR, L-SPINE WITHOUT CONTRAST, 02/20/2014, 7:57. FINDINGS: Image quality: Excellent. Alignment and Curvature: Mild anterolisthesis is seen at the L4-L5 level and the L5-S1 level. Hmiy-sf-zkizcbnn lower lumbar spine levoconvex scoliotic curvature is seen. There is left lateral subluxation of L4 in relation to L5. Bone Marrow: Marrow is of normal overall signal. Scattered foci are seen, which are hyperintense on T1-weighted and T2-weighted imaging, which are most consistent with benign vertebral body hemangiomas. No acute vertebral body compression fractures. Spinal Cord: Conus medullaris terminates at the L1-L2 level. Visualized cord demonstrates normal signal and size. Paraspinous Soft Tissues: No paravertebral masses. T12-L1: Normal appearance. L1-L2: Normal appearance. L2-L3: Normal appearance. L3-L4: The disc height is well-preserved. Loss of disc signal is seen at this level. Moderate disc bulge is seen, with a central disc protrusion seen. There is at least moderate facet hypertrophy seen. Fluid is seen within the facet joints themselves. Associated hypertrophy of the ligamentum flavum can be seen. Moderate bilateral neural foraminal narrowing is seen, right worse than left. At least moderate central canal narrowing is seen. These imaging findings have progressed compared to the prior study. L4-L5: There is at least moderate loss of disc height and disc signal seen. At least moderate disc bulge is seen. Moderate to prominent facet hypertrophy is seen. Associated hypertrophy of the ligamentum flavum can be seen. There is moderate to severe bilateral neural foraminal narrowing seen, right worse than left. There is a degree of compression seen upon the exiting nerve roots. Moderate to severe central canal narrowing is seen at this level. These imaging findings have progressed compared to the prior study. L5-S1: Mild to moderate loss of disc height and disc signal can be seen. Mild to moderate disc bulge is seen, which is eccentric to the left. There is moderate right-sided and moderate left-sided facet hypertrophy seen. There is moderate right-sided and moderate to severe left-sided neural foraminal narrowing seen. There is a degree of compression seen upon the exiting left L5 nerve root. Mild central canal narrowing is seen. Mild progression compared to the prior. IMPRESSION: Lower lumbar spine degenerative changes are seen, which have progressed compared to the 2018 MRI examination. Dictated by: Clive Choudhary M.D. on 03/16/2020 at 16:40 Approved by: Clive Choudhary M.D. on 03/16/2020 at 16:45
== END ==
PROVIDERS: Family Provider Family Medicine; PCP Family Medicine; Referring Provider Physical Medicine & Rehabilitation; Visit Provider Physical Medicine & Rehabilitation
DX: M48.02 Spinal stenosis, cervical region (principal); M47.22 Other spondylosis with radiculopathy, cervical region; M47.26 Other spondylosis with radiculopathy, lumbar region; M47.27 Other spondylosis with radiculopathy, lumbosacral region; M43.17 Spondylolisthesis, lumbosacral region; M43.16 Spondylolisthesis, lumbar region; R20.2 Paresthesia of skin
CPT/HCPCS: 72141; 72148

== ENCOUNTER → 2021-02-23 15:48 | Outpatient (CLI) | payer OTHER, SELFPAY ==
--- NOTE | 2021-02-23 15:53 | DI.RAD.S_ITS ---
PROCEDURE: XR CHEST 2V INDICATIONS: SOB/CHRONIC COUGH TECHNIQUE: 2 views of the chest were acquired. COMPARISON: [facility], , CHEST 2 VIEW, 03/10/2015, 11:21. FINDINGS: Surgical changes and devices: None. Lungs and pleura: Lungs are clear considering reduced inspiratory volume on the frontal view.. No pleural effusions or pneumothorax. Mediastinum: Mediastinal contours are normal. Heart size is normal. Bones and chest wall: No suspicious bony abnormalities. Soft tissues appear unremarkable. IMPRESSION: Reduced inspiration on the frontal view, no pneumonia or mass found. Dictated by: Gamaliel Luong M.D. on 02/23/2021 at 17:19 Approved by: Gamaliel Luong M.D. on 02/23/2021 at 17:20
== END ==
PROVIDERS: Family Provider Family Medicine; PCP Family Medicine; Referring Provider Family Medicine; Visit Provider Family Medicine
DX: R06.02 Shortness of breath (principal); R05 Cough
CPT/HCPCS: 71046

== ENCOUNTER → 2021-02-25 15:31 | Outpatient (CLI) | payer OTHER, SELFPAY ==
--- NOTE | 2021-02-25 | DI.MG.S_ITS ---
BILATERAL DIGITAL SCREENING MAMMOGRAM 3D/2D WITH CAD: 02/25/2021 CLINICAL: Routine screening. Comparison is made to exams dated: 10/23/2019 mammogram, 05/11/2017 mammogram, and 11/07/2013 mammogram - [facility]. The tissue of both breasts is heterogeneously dense. This may lower the sensitivity of mammography. Current study was also evaluated with a Computer Aided Detection (CAD) system. No significant masses, calcifications, or other findings are seen in either breast. There has been no significant interval change. IMPRESSION: NEGATIVE There is no mammographic evidence of malignancy. A 1 year screening mammogram is recommended. This exam was interpreted at Station ID: [id number]. NOTE: For mammograms, a report in lay terms will be sent to the patient. Approximately 15% of breast malignancies will not be visualized mammographically. In the management of a palpable breast mass, a negative mammogram must not discourage biopsy of a clinically suspicious lesion. Electronically Signed By: Niraj merrill/charan:02/25/2021 15:44:39 letter sent: Normal Exam ACR BI-RADS Category 1: Negative 3341F
== END ==
PROVIDERS: Family Provider Family Medicine; PCP Family Medicine; Referring Provider Family Medicine; Visit Provider Family Medicine
DX: Z12.31 Encounter for screening mammogram for malignant neoplasm of breast (principal)
CPT/HCPCS: 77063; 77067

== ENCOUNTER → 2021-03-08 08:51 | Outpatient (CLI) | payer OTHER, SELFPAY ==
[2021-03-08 09:45] LABS: COVID19 -Nasal RAPID Negative (Negative)
== END ==
PROVIDERS: Family Provider Family Medicine; PCP Family Medicine; Referring Provider Internal Medicine; Visit Provider Internal Medicine
DX: Z20.822 Contact with and (suspected) exposure to COVID-19 (principal)
CPT/HCPCS: 87635; C9803

== ENCOUNTER → 2021-03-09 08:49 | Outpatient (CLI) | payer OTHER, SELFPAY ==
--- NOTE | 2021-03-12 08:13 | PM.PFT.1 ---
Pulmonary Function Test Referral & Results Date Patient Seen: 03/09/21 Requesting provider: Sheryl Walden Results: The spirometry demonstrates an FVC of 3.25 L which is 94% of predicted. The FEV1 was measured at 2.61 L which is 98% of predicted. The FEV1/FVC ratio was 80 which is 102% of predicted. Following the administration of bronchodilator there was 11% improvement in FEV1 and a 60% improvement in FEF 25-75%. Lung volumes show an SVC of 3.79 L which is 119% of predicted. The diffusing capacity was measured at 25.22 which is 98% of predicted. The maximum voluntary ventilation was normal Interpretation: This study demonstrates normal pulmonary function
== END ==
PROVIDERS: Family Provider Family Medicine; PCP Family Medicine; Referring Provider Family Medicine; Visit Provider Family Medicine
DX: R06.02 Shortness of breath (principal); R05 Cough; Z77.22 Contact with and (suspected) exposure to environmental tobacco smoke (acute) (chronic)
CPT/HCPCS: 94060; 94726; 94729

== ENCOUNTER → 2021-04-21 11:47 | Outpatient (CLI) | payer OTHER, SELFPAY ==
[2021-04-21 12:37] LABS: COVID19 -Nasal RAPID Negative (Negative)
== END ==
PROVIDERS: Family Provider Family Medicine; PCP Family Medicine; Visit Provider Physician Assistant
DX: Z01.812 Encounter for preprocedural laboratory examination (principal); Z20.822 Contact with and (suspected) exposure to COVID-19
CPT/HCPCS: 87635

== ENCOUNTER → 2021-04-22 10:44 | Outpatient (CLI) | payer OTHER, SELFPAY ==
--- NOTE | 2021-04-23 14:33 | DI.NM.S_ITS ---
PROCEDURE PERFORMED: Exercise treadmill stress and rest myocardial perfusion imaging study with gating to assess ejection fraction and regional wall motion. DATE OF SERVICE: April 22, 2021. INDICATIONS: The patient is a 60-year-old female with exertional dyspnea and palpitations. ORDERING PROVIDER: Sheryl Walden MD EXERCISE TREADMILL TESTING: The patient was able to exercise for a total of 10 minutes 43 seconds on a standard Andrea protocol suggesting excellent exercise capacity with an SANJUANA of -55%. She had a normal heart rate and blood pressure response to exercise achieving a maximum heart rate of 166 bpm (103% of her predicted maximum). She had no chest discomfort. Her resting ECG is normal and there are no significant ST-segment shifts or arrhythmias with exercise except for a rare PVC, rarely in couplets. At 8 minutes of exercise at a heart rate of 144 bpm, 23.6 millicuries of technetium-99m Myoview was injected and she was imaged 15 minutes later using a gated SPECT acquisition protocol. The following day, she returned and was reinjected with an additional 25.6 millicuries of technetium-99m Myoview and was imaged 30 minutes later, again using a gated SPECT acquisition protocol. FINDINGS: RAW DATA: There is good myocardial tracer uptake with minimal breast shadows. Lung/heart ratio is normal at 0.28 with a normal TID ratio of 0.91. QUANTITATED GATED SPECT: Post-stress ejection fraction is estimated at 79% without any focal wall motion abnormality. Resting ejection fraction is 71% with a normal resting end-diastolic volume of 94 mL. MYOCARDIAL PERFUSION IMAGING: Post-stress supine images show a normal myocardial perfusion pattern without any perfusion defects, supported by normal perfusion imaging in the prone position, revealing a homogeneous perfusion pattern. The resting images show an identical perfusion pattern without any areas of improvement. IMPRESSION: 1. Normal myocardial perfusion study. 2. No evidence of myocardial ischemia or previous myocardial infarction. 3. Normal left ventricular systolic function without focal wall motion abnormality. 4. Exceptional exercise capacity without angina or ECG evidence of ischemia. She had rare PVCs, rarely in couplets. Ce Johnson - RS/fn/cs doc#: [id number]/job#: [id number] dd: 04/23/2021 13:03:00 dt: 04/23/2021 14:25:00 DICTATING MD/COPIES TO: Maximilian Garcia MD; Sheryl Walden MD COPIES MNE: [facility];
== END ==
PROVIDERS: Family Provider Family Medicine; PCP Family Medicine; Referring Provider Family Medicine; Visit Provider Family Medicine
DX: R06.02 Shortness of breath (principal); R06.09 Other forms of dyspnea; R00.2 Palpitations
CPT/HCPCS: 78452; 93017; A9502

== ENCOUNTER → 2021-07-23 10:38 | Outpatient (CLI) | payer OTHER, SELFPAY ==
[2021-07-23 13:48] LABS: COVID19 -Nasal RAPID Negative (Negative)
== END ==
PROVIDERS: Family Provider Family Medicine; PCP Family Medicine; Visit Provider Surgery
DX: Z20.822 Contact with and (suspected) exposure to COVID-19 (principal); Z01.812 Encounter for preprocedural laboratory examination
CPT/HCPCS: 87635; C9803

== ENCOUNTER 2021-07-26 11:58 | Day surgery (SDC) | payer OTHER, SELFPAY ==
[2021-07-26] MEDS: LACTATED RINGERS 1,000 ML 42 ML IV (12:22)
[2021-07-26 12:23] VITALS: BP 137/79; PULSE 73; RESP 16; TEMP 37.2; O2SAT 99; BMI 31.6
--- NOTE | 2021-07-26 13:33 | PM.HP.1 ---
History of Present Illness History of Present Illness Date Patient Seen: 07/26/21 Time Patient Seen: 13:33 Chief complaint: SCREENING COLONOSCOPY Narrative: H/o polyps, last colonoscopy was 5 years. No new symptoms Patient History Medical History ACL tear Acute meniscal tear of right knee CTS (carpal tunnel syndrome) History of colon polyps Right knee DJD Surgical History No pertinent past surgical history Family & Social History Family History Father Heart disease Diabetes mellitus Mother Lung cancer Social History: household members spouse Tobacco & Substance use: Smoking Status Never smoker alcohol intake frequency holiday/special occasion Substance Use Type does not use Meds Home Medications and Allergies Home Medications Medication Instructions Recorded Confirmed Type naltrexone 50 mg tablet 4.5 mg PO DAILY tab 12/11/19 07/26/21 History ibuprofen 200 mg tablet 600 mg PO BID PRN tab 03/18/20 07/26/21 History Allergies Allergy/AdvReac Type Severity Reaction Status Date / Time codeine Allergy Unknown Fainting Verified 07/26/21 12:12 Exam Vital Signs (past 8 hours): - 07/26/21 12:23 Temperature 99 F Pulse Rate 73 Respiratory Rate 16 Blood Pressure 137/79 Pulse Oximetry 99 Oxygen Delivery Method Room Air Const General: cooperative Nutritional Appearance: average body habitus HENMT Head: normal to inspection Eyes General: appearance normal, both eyes and all related structures Neck Neck: normal visual inspection Resp Effort & Inspection: normal respiratory effort and able to speak in complete sentences Auscultation: clear to auscultation bilaterally Cardio Rate: regular rate Rhythm: regular rhythm GI Inspection: normal to inspection Neuro Sensory Exam: no sensory deficits noted Extrem General: full ROM Psych Appearance: grossly normal Judgment: judgment good Assessment & Plan Assessment & Plan narrative: h/o colon polyps here for surveillance colonoscopy COVID-19 COVID-19 status: Negative Time Spent With Patient Time with patient: less than 30 minutes Critical Care time: I spent a total of [] minutes of critical care time on this patient's care today; this time is exclusive of procedural time.
--- NOTE | 2021-07-26 13:47 | PM.OP.ENDO ---
Operative Date/Time/Diagnoses Date of procedure: 07/26/21 Time of procedure: 13:47 Pre-op diagnosis: h/o colon polyps Post-op diagnosis: same Procedure & Clinicians Study performed: colonoscopy Same procedure as scheduled: Yes Indications: h/o colon polyps Surgeon: Lawanda Riojas Procedure Notes SCOAP/Timeout: Done Procedure in detail: Prep diagnosis: History of colon polyps Postop diagnosis: Same Operative procedure: Colonoscopy with moderate sedation Surgeon: Chapis Riojas MD Anesthetic: Fentanyl and Versed see nursing notes for doses. ASA 1 Findings: No polyps identified, no significant diverticulosis. Bowel prep excellent Procedure: Patient placed in a lateral position. Rectal exam is performed showing normal tone no masses. Colonoscope inserted into the rectum and advanced to the ileocecal valve with minimal difficulty. Insufflation and extractions scope including retroflex in the rectum had the above findings. External pressure was applied for coping into the ascending colon. No complications. Impression: Normal colonoscopy no polyps identified. Plan: Repeat colonoscopy in 5 years due to self history of colon polyps Scope withdrawal time: 6 minutes Sedation minutes: 30 Specimen(s): none sent Complications: none Impression: No polyps identified on this colonoscopy. No significant diverticulosis. Excellent bowel prep Post-procedure Recommendations: Colonscopy in 5 years and Continue medication(s) Follow up: as needed Disposition: PACU
[2021-07-26] MEDS: fentaNYL 250 MCG/5 ML INJ IV (14:00)
[2021-07-26] MEDS: MIDAZOLAM 5 MG/5 ML VIAL IV (14:02)
[2021-07-26 14:18] VITALS: BP 142/82; PULSE 71; RESP 14; TEMP 36.4; O2SAT 98
[2021-07-26 14:23] VITALS: BP 123/78; PULSE 68; RESP 15; O2SAT 98
[2021-07-26 14:28] VITALS: BP 115/81; PULSE 16; RESP 64; O2SAT 97
[2021-07-26 14:33] VITALS: BP 127/85; PULSE 71; RESP 14; TEMP 36.6; O2SAT 98
--- NOTE | 2021-07-26 14:37 | SUR.PHASEI ---
Patient transferred to [facility] in [facility]. SBAR report to Fili GRAJEDA.
== END 2021-07-26 15:05 | disposition home or self-care (01) ==
PROVIDERS: Family Provider Family Medicine; PCP Family Medicine; Referring Provider Surgery; Visit Provider Surgery
PROC: 0DJD8ZZ Inspection of Lower Intestinal Tract, Via Natural or Artificial Opening Endoscopic (ICD-10-PCS; CPT 45378; principal; 2021-07-26 13:00)
DX: Z12.11 Encounter for screening for malignant neoplasm of colon (principal); Z86.010 Personal history of colon polyps
CPT/HCPCS: 45378; 99152; 99153; J2250; J3010

== ENCOUNTER → 2021-11-02 09:25 | Outpatient (CLI) | payer OTHER, SELFPAY ==
--- NOTE | 2021-11-02 | DI.MRI.S_ITS ---
PROCEDURE: MR SHOULDER LT WO CON INDICATIONS: ROTATOR CUFF TENDONITIS,POSS TEAR TECHNIQUE: Noncontrast oblique coronal T2 fast spin echo with fat saturation, oblique sagittal T1 spin echo and T2 fast spin echo with fat saturation, axial T1 spin echo and T2 fast spin echo with fat saturation through the shoulder. COMPARISON: None. FINDINGS: Image quality: Excellent. Rotator cuff: Mild T2 signal elevation throughout the supraspinatus and infraspinatus tendons at the humeral insertion sites, extending to the musculotendinous junctions, indicating tendinopathy. Low-grade partial-thickness intrasubstance tearing of the anterior, mid, and posterior supraspinatus tendons at the humeral insertion sites. Low-grade partial-thickness articular surface tearing of the mid and inferior aspects of the subscapularis tendon at the humeral insertion site extending to the musculotendinous junction. Infraspinatus and teres minor tendons are intact. Bones and bursae: No bone marrow contusions or fractures. Moderate acromioclavicular joint degeneration. The acromion demonstrates conventional anatomy, without an os acromiale. No pathologic subacromial-subdeltoid or subcoracoid bursal fluid is present. Capsule and soft tissues: Moderate glenohumeral joint effusion. Labrum is grossly unremarkable The long head of the biceps tendon demonstrates normal location and moderate grade partial-thickness tearing proximally. The rotator interval appears normal, without fibrosis. The coracohumeral ligament is normal in thickness. IMPRESSION: 1. Supraspinatus and infraspinatus tendinopathy. 2. Low-grade partial-thickness tearing of the supraspinatus and subscapularis tendons. 3. Partial-thickness tearing of the biceps tendon . 4. Acromioclavicular joint osteoarthritis. 5. Glenohumeral joint effusion. Dictated by: Jigar Cota M.D. on 11/02/2021 at 11:44 Approved by: Jigar Cota M.D. on 11/02/2021 at 11:46
== END ==
PROVIDERS: Family Provider Family Medicine; PCP Family Medicine; Referring Provider Family Medicine; Visit Provider Family Medicine
DX: M65.819 Other synovitis and tenosynovitis, unspecified shoulder (principal); S46.012A Strain of muscle(s) and tendon(s) of the rotator cuff of left shoulder, initial encounter; S46.212A Strain of muscle, fascia and tendon of other parts of biceps, left arm, initial encounter; M19.012 Primary osteoarthritis, left shoulder; M25.412 Effusion, left shoulder
CPT/HCPCS: 73221

== ENCOUNTER → 2021-12-01 09:31 | Outpatient (CLI) | payer OTHER, SELFPAY ==
[2021-12-01 10:25] LABS: Add Manual Diff / Slide Review NO; Basophils Absolute Auto 100 /uL (0-100); Basophils Percent Auto 1.3 % (0-2); Eosinophils Absolute Auto 100 /uL (0-450); Eosinophils Percent Auto 2.9 % (2-4); Hematocrit 38.8 % (36-46); Hemoglobin 13.1 g/dL (12.0-16.0); Lymphocytes Absolute Auto 1200 /uL (1100-4500); Lymphocytes Percent Auto 28.7 % (25-40); Mean Corpuscular HGB Conc 33.7 % (30-36); Mean Corpuscular Hemoglobin 28.5 PG (26-34); Mean Corpuscular Volume 84.6 fL (80-100); Monocytes Absolute Auto 400 /uL (0-900); Monocytes Percent Auto 8.7 % (3-14); Neutrophils Absolute Auto 2400 /uL (1500-7000); Neutrophils Percent Auto 58.4 % (50-75); Platelet Count 250 X10^3/uL (150-400); Red Blood Cell Count 4.59 X10^6/uL (4.0-5.2); Red Cell Distribution Width 15.1 % (11.6-14.8)
[2021-12-01 10:41] LABS: Alanine Aminotransferase 17 IU/L (<35); Albumin 4.4 g/dL (3.5-5.0); Albumin Globulin Ratio 1.6 (1.0-2.8); Alkaline Phosphatase 58 U/L (38-126); Aspartate Aminotransferase 29 IU/L (14-36); BUN Creatinine Ratio 14.3 (6-22); Bilirubin Total 0.9 mg/dL (0.2-1.3); Blood Urea Nitrogen 11 mg/dL (7-17); Calcium 9.5 mg/dL (8.4-10.2); Carbon Dioxide 29 mmol/L (22-32); Chloride 105 mmol/L (98-107); Cholesterol 240 mg/dL (140-199); Estimated Glomerular Filt Rate > 60.0 mL/min (>60); Globulin 2.8 g/dL (1.7-4.1); Glucose 97 mg/dL (80-110); HDL Cholesterol 83 mg/dL (40-60); HEMOLYSIS < 15 (0-50); LDL Cholesterol Calculated 140 mg/dL (<100); Potassium 4.4 mmol/L (3.4-5.1); Sodium 140 mmol/L (137-145); Total Protein 7.2 g/dL (6.3-8.2); Triglycerides 84 mg/dL (35-150)
== END ==
PROVIDERS: Family Provider Family Medicine; PCP Family Medicine; Referring Provider Naturopath; Visit Provider Naturopath
DX: Z00.00 Encounter for general adult medical examination without abnormal findings (principal)
CPT/HCPCS: 36415; 80053; 80061; 85025

== ENCOUNTER → 2022-11-14 16:24 | Outpatient (CLI) | payer OTHER, SELFPAY ==
--- NOTE | 2022-11-14 | DI.RAD.S_ITS ---
PROCEDURE: XR FOOT LT MIN 3V INDICATIONS: Pain in left knee TECHNIQUE: 3 views of the foot were acquired. COMPARISON: [facility], , FOOT 3V LEFT, 09/26/2017, 16:21. FINDINGS: Bones: No fractures or dislocations. No suspicious bony lesions. Mild periarticular osteophyte formation at the 1st metatarsophalangeal joint. Subchondral cyst formation within the proximal 3rd metatarsal, new since the prior examination. Periarticular osteophyte formation at the 3rd, 4th, and 5th tarsometatarsal joints. Soft tissues: No tibiotalar joint effusion. Achilles tendon appears normal. IMPRESSION: 1. Osteoarthritis. 2. No acute fracture. No osseous lesion. If symptoms and/or clinical suspicion for pathology persist, further assessment with repeat, or advanced imaging (e.g., CT, MRI, or bone scan) may be helpful for further assessment. Dictated by: Jigar Cota M.D. on 11/14/2022 at 16:50 Transcribed by: YVES on 11/14/2022 at 16:51 Approved by: Jigar Cota M.D. on 11/14/2022 at 16:56
--- NOTE | 2022-11-14 | DI.RAD.S_ITS ---
PROCEDURE: XR KNEE LT 3V INDICATIONS: Pain in left knee TECHNIQUE: 3 views of the knee were acquired. COMPARISON: [facility], , KNEE 3V RIGHT, 11/29/2014, 12:18. FINDINGS: Bones: No fractures or dislocations. No suspicious bony lesions. Bipartite superolateral patella. Soft tissues: No joint effusion. No suspicious soft tissue calcifications. IMPRESSION: No acute fracture. No osseous lesion. If symptoms and/or clinical suspicion for pathology persist, further assessment with repeat, or advanced imaging (e.g., CT, MRI, or bone scan) may be helpful for further assessment. Dictated by: Jigar Cota M.D. on 11/14/2022 at 16:50 Transcribed by: YVES on 11/14/2022 at 16:50 Approved by: Jigar Cota M.D. on 11/14/2022 at 16:55
== END ==
PROVIDERS: Family Provider Family Medicine; PCP Family Medicine; Referring Provider Family Medicine; Visit Provider Family Medicine
DX: M76.32 Iliotibial band syndrome, left leg (principal); M19.072 Primary osteoarthritis, left ankle and foot; M25.562 Pain in left knee
CPT/HCPCS: 73562; 73630

== ENCOUNTER → 2023-02-14 15:47 | Outpatient (CLI) | payer OTHER, SELFPAY ==
--- NOTE | 2023-02-14 15:54 | DI.RAD.S_ITS ---
PROCEDURE: XR CERVICAL SPINE 4V OR 5V INDICATIONS: NECK PAIN TECHNIQUE: 5 views of the cervical spine acquired. COMPARISON: None. FINDINGS: Bones: No fractures or dislocations to the T1 level. Oblique images demonstrate no bony foraminal stenoses. Disc space narrowing, endplate degenerative changes, and anterior osteophytes at C3-4, C5-6, and C6-7. Soft tissues: No prevertebral soft tissue swelling. IMPRESSION: 1. Multilevel degenerative changes of the cervical spine. 2. Degenerative disc disease with endplate degenerative changes, disc space narrowing, and osteophytes at C3-4, C5-6, and C6-7. Dictated by: Liang Orr M.D. on 02/14/2023 at 16:32 Approved by: Liang Orr M.D. on 02/14/2023 at 16:34
--- NOTE | 2023-02-14 15:54 | DI.RAD.S_ITS ---
PROCEDURE: XR THORACIC SPINE 3V INDICATIONS: THORACIC BACK PAIN TECHNIQUE: 3 views of the thoracic spine were acquired. COMPARISON: [facility], , THORACIC SPINE 2 VIEWS, 05/27/2016, 14:38. FINDINGS: Bones: No fractures or dislocations. No suspicious bony lesions. 12 pairs of ribs are noted, and appear intact where visualized. Multilevel degenerative changes present Soft tissues: No paravertebral stripe thickening. IMPRESSION: 1. No thoracic spine fracture identified radiographically. 2. Multilevel degenerative changes of the thoracic spine are present. 3. If symptoms persist, follow-up radiographs and/or CT or MRI may be helpful for further evaluation. Dictated by: Jose Clay M.D. on 02/14/2023 at 17:12 Approved by: Jose Clay M.D. on 02/14/2023 at 17:15
--- NOTE | 2023-02-14 15:54 | DI.RAD.S_ITS ---
PROCEDURE: XR LUMBAR SPINE MIN 4V INDICATIONS: BACK PAIN TECHNIQUE: 5 views of the lumbar spine were acquired, including bilateral oblique views. COMPARISON: [facility], , L-SPINE 2-3 VIEWS, 12/02/2013, 11:04. FINDINGS: Bones: 5 nonrib-bearing vertebrae are present. Leftward curvature of the lumbar spine. There is normal bony alignment. No vertebral body compression fractures. No suspicious bony lesions. Disc space narrowing, endplate sclerosis, facet arthrosis, and osteophytes at L4-5 and L5-S1. Grade 1 anterolisthesis of L4-5 is likely related to facet arthrosis. The sacroiliac joints have degenerative changes. Soft tissues: Overlying bowel gas pattern is normal. No suspicious soft tissue calcifications. Oblique images: No pars defects. IMPRESSION: 1. No acute abnormality. 2. Degenerative disc disease at L4-5 and L5-S1. 3. Levoscoliosis of the lumbar spine. 4. Degenerative changes of the sacroiliac joints. Dictated by: Liang Orr M.D. on 02/14/2023 at 16:35 Approved by: Liang Orr M.D. on 02/14/2023 at 16:39
== END ==
PROVIDERS: Family Provider Family Medicine; PCP Family Medicine; Referring Provider Physical Medicine & Rehabilitation; Visit Provider Physical Medicine & Rehabilitation
DX: M47.28 Other spondylosis with radiculopathy, sacral and sacrococcygeal region (principal); M51.16 Intervertebral disc disorders with radiculopathy, lumbar region; M51.17 Intervertebral disc disorders with radiculopathy, lumbosacral region; M43.16 Spondylolisthesis, lumbar region; M47.814 Spondylosis without myelopathy or radiculopathy, thoracic region; M47.812 Spondylosis without myelopathy or radiculopathy, cervical region; M50.31 Other cervical disc degeneration, high cervical region; M48.02 Spinal stenosis, cervical region; M50.20 Other cervical disc displacement, unspecified cervical region; M41.9 Scoliosis, unspecified
CPT/HCPCS: 72050; 72072; 72110

== ENCOUNTER 2023-09-19 08:02 | Outpatient (CLI) | payer OTHER, SELFPAY ==
[2023-09-19] VITALS (10 sets, daily range): BP systolic 111–156; BP diastolic 68–93; PULSE 65–74; RESP 12–20; TEMP 35.6; O2SAT 92–100
--- NOTE | 2023-09-19 08:45 | DI.RAD.S_ITS ---
PROCEDURE: PAIN L/S TRANSFORAM INJECT FLEX COMPARISON: None. INDICATIONS: SPONDYLOSIS FINDINGS: Fluoroscopic spot filming was performed to verify placement of spinal needles bilaterally at the L4-L5 level, as labeled on the films. Appropriate locations of the needle tip was confirmed by injection of iodinated contrast. IMPRESSION: Imaging confirms appropriate position for L4-L5 transforaminal steroid injection. Dictated by: Zach Adkins M.D. on 09/19/2023 at 13:24 Approved by: Zach Adkins M.D. on 09/19/2023 at 13:25
[2023-09-19] MEDS: MIDAZOLAM 2 MG/2 ML VIAL IV (09:25)
[2023-09-19] MEDS: fentaNYL 100 MCG/2 ML INJ 50 MCG IV (09:27)
[2023-09-19] MEDS: iopamidoL 15 ML VIAL 3 ML INJ (09:32)
[2023-09-19] MEDS: DEXAMETHASONE 10 MG/ML VIAL 20 MG INJ (09:32)
[2023-09-19] MEDS: BUPIVACAINE 0.25% (PF) VIAL 2 ML INJ (09:33)
[2023-09-19] MEDS: BETAMETHASONE 30 MG/5 ML MDV 12 MG INJ (09:34)
--- NOTE | 2023-09-19 09:47 | P.PCN_ITS ---
Date/Time/Diagnoses Date of procedure: 09/19/23 Time of procedure: 09:47 Pre-procedure diagnosis: 1. FORAMINAL STENOSIS WITH LE SYMPTOMS Procedure Notes Procedure: 1. FLUOROSCOPICALLY GUIDED CONTRAST CONTROLLED TRANSFORAMINAL EPIDURAL STEROID INJECTION - BILATERAL L4/5 TFESI Indications: Ce is referred by Dr. Walden for treatment of Foraminal Stenosis with bilateral LE Symptoms Physician: Maximilian Scott Total Fluoroscopy time (seconds): 24 Total sedation minutes: 19 Complications: none Procedure in detail & Post-procedure care: FINDINGS Foraminal Nerve Root Compression secondary to disc disease and facet hypertrophy DESCRIPTION OF PROCEDURE Following review of allergy and review of potential side effects and complications, including, but not necessarily limited to, infection, allergic reaction, local tissue breakdown, stroke, temporary or permanent nerve injury, paralysis, and possible , the patient indicated that the patient understood and agreed to proceed. An informed consent document was signed by the patient, witnessed by a nurse, and placed in the patient's chart. Additionally, other treatment options including medications, modalities, and physical therapy were reviewed with the patient. After review of previous anaesthesic history and IV conscious sedation the patient was deemed safe to proceed with today?s procedure with IV conscious sedation as ASA class II designation. Safety time-out was performed to confirm patient ID, procedure to be performed and site of procedure. IV sedation was accomplished with a combination of 2mg of Versed and 50mcg of Fentanyl was administered by the RN after DO order, titrated to patient comfort during the course of the procedure while the patient remained responsive to all verbal commands In the prone position following sterile prep and drape of the lumbar region, the right L4/5 posterior neuroforamen was identified fluoroscopically. The skin was anesthetized via a 25-gauge 1.5-inch needle with 1% lidocaine solution. At this point, a 25-gauge 3.5-inch spinal needle was atraumatically introduced and advanced under fluoroscopic guidance through the posterior right L4/5 neuroforamen to approximately the anterior aspect of the canal. Depth was confirmed on lateral view. Following negative aspiration, injection of approximately 1.5cc of Isovue 200 under live fluoroscopy in the AP view confirmed excellent flow along the nerve root, into the epidural space without vascular or intrathecal uptake observed Radiological data, including multiple fluoroscopic views of the lumbosacral spine, reveal a spinal needle at the right L4/5 posterior neuroforamen. Subsequent views show flow of contrast material flowing superiorly and inferiorly along the nerve root confirming epidural flow. Subsequently, a test dose of 1.5cc of 1% lidocaine solution was administered and patient was observed for two minutes for signs or symptoms of complications, including abdominal pain, shortness of breath, bilateral upper or lower extremity weakness, nausea and vomiting, prior to steroid injection. At this point, a total of 2cc or 10mg of dexamethasone and 6mg betamethasone was injected without incident. Attention was then refocused to the left L4/5 level where the identical procedure was replicated. The procedure tolerated the procedure well without signs or symptoms of complications prior to transfer to the recovery area continued monitoring with out incident. The patient was then transferred to the recovery area where they were observed for an appropriate time after the injection. The patient reported a VAS score of 7 prior to the procedure and a post-procedure VAS of 0. POST OP INSTRUCTIONS The patient was provided a Pain Log to continue to record their response to the target-specific procedure prior to follow-up visit with their referring physician. Additionally, specific post-injection care instructions and a contact number to our office were provided if concerns arise regarding possible complications associated with the procedure are suspected.
== END 2023-09-19 10:09 | disposition home or self-care (01) ==
LOC: RAD 08:03
PROVIDERS: Family Provider Family Medicine; PCP Family Medicine; Referring Provider Physical Medicine & Rehabilitation; Visit Provider Physical Medicine & Rehabilitation
DX: M48.061 Spinal stenosis, lumbar region without neurogenic claudication (principal); M51.16 Intervertebral disc disorders with radiculopathy, lumbar region; M47.26 Other spondylosis with radiculopathy, lumbar region
CPT/HCPCS: 64483; 99152; J0702; J1100; J2250; J3010; J3490

== ENCOUNTER → 2024-01-30 08:48 | Outpatient (CLI) | payer OTHER, SELFPAY ==
[2024-01-30 09:34] LABS: Add Manual Diff / Slide Review NO; Basophils Absolute Auto 0 /uL (0-100); Basophils Percent Auto 1.1 % (0-2); Eosinophils Absolute Auto 100 /uL (0-450); Eosinophils Percent Auto 2.9 % (2-4); Hematocrit 36.6 % (36-46); Hemoglobin 12.4 g/dL (12.0-16.0); Lymphocytes Absolute Auto 1500 /uL (1100-4500); Lymphocytes Percent Auto 36.9 % (25-40); Mean Corpuscular HGB Conc 33.8 % (30-36); Mean Corpuscular Hemoglobin 29.6 PG (26-34); Mean Corpuscular Volume 87.5 fL (80-100); Monocytes Absolute Auto 300 /uL (0-900); Monocytes Percent Auto 8.1 % (3-14); Neutrophils Absolute Auto 2000 /uL (1500-7000); Platelet Count 274 X10^3/uL (150-400); Red Blood Cell Count 4.18 X10^6/uL (4.0-5.2); Red Cell Distribution Width 14.6 % (11.6-14.8)
[2024-01-30 10:21] LABS: Alanine Aminotransferase 20 IU/L (<35); Albumin 4.2 g/dL (3.5-5.0); Albumin Globulin Ratio 1.8 (1.0-2.8); Alkaline Phosphatase 50 U/L (38-126); Aspartate Aminotransferase 27 IU/L (14-36); BUN Creatinine Ratio 24.4 (6-22); Bilirubin Total 0.9 mg/dL (0.2-1.3); Blood Urea Nitrogen 20 mg/dL (7-17); Calcium 9.1 mg/dL (8.4-10.2); Carbon Dioxide 26 mmol/L (22-32); Chloride 108 mmol/L (98-107); Cholesterol 217 mg/dL (140-199); Estimated Glomerular Filt Rate > 60 mL/min (>60); Globulin 2.3 g/dL (1.7-4.1); Glucose 91 mg/dL (80-110); HDL Cholesterol 76 mg/dL (40-60); HEMOLYSIS < 15 (0-50); LDL Cholesterol Calculated 125 mg/dL (<100); Potassium 4.2 mmol/L (3.4-5.1); Sodium 138 mmol/L (137-145); Total Protein 6.5 g/dL (6.3-8.2); Triglycerides 82 mg/dL (35-150)
== END ==
LOC: LAB 08:49
PROVIDERS: Family Provider Family Medicine; PCP Family Medicine; Referring Provider Naturopath; Visit Provider Naturopath
DX: Z00.00 Encounter for general adult medical examination without abnormal findings (principal)
CPT/HCPCS: 36415; 80053; 80061; 85025

== ENCOUNTER → 2024-03-02 07:47 | Outpatient (CLI) | payer OTHER, SELFPAY ==
--- NOTE | 2024-03-02 | DI.MG.S_ITS ---
BILATERAL DIGITAL SCREENING MAMMOGRAM 3D/2D WITH CAD: 03/02/2024 CLINICAL: Routine screening. Comparison is made to exams dated: 02/25/2021 mammogram and 10/23/2019 mammogram - [facility]. Both breasts are heterogeneously dense, which may obscure small masses (category c / 51-75% glandular tissue). Current study was also evaluated with a Computer Aided Detection (CAD) system. No significant masses, calcifications, or other findings are seen in either breast. There has been no significant interval change. IMPRESSION: NEGATIVE There is no mammographic evidence of malignancy. A 1 year screening mammogram is recommended. Based on the Tyrer Cuzick model (a risk assessment model) the patient's lifetime risk is 11.4% and her 10 year risk is 5.0%. According to the ACR, ACS, and NCCN guidelines, an annual breast MRI exam along with mammogram is recommended if the patient's lifetime risk is 20% or greater. This exam was interpreted at Station ID: [id number]. NOTE: For mammograms, a report in lay terms will be sent to the patient. Approximately 15% of breast malignancies will not be visualized mammographically. In the management of a palpable breast mass, a negative mammogram must not discourage biopsy of a clinically suspicious lesion. Electronically Signed By: Jose loo/charan:03/05/2024 12:48:04 letter sent: Normal Exam ACR BI-RADS Category 1: Negative [id number]
== END ==
LOC: MAMMO 07:47
PROVIDERS: Family Provider Family Medicine; PCP Family Medicine; Referring Provider Family Medicine; Visit Provider Family Medicine
DX: Z12.31 Encounter for screening mammogram for malignant neoplasm of breast (principal); R92.333 Mammographic heterogeneous density, bilateral breasts
CPT/HCPCS: 77063; 77067

== ENCOUNTER → 2024-06-27 06:55 | Outpatient (CLI) | payer OTHER, SELFPAY ==
--- NOTE | 2024-06-27 06:57 | DI.ECHO.S_ITS ---
[facility] : : [address] : : [place] : : [id number] : : Phone: [phone] Echocardiogram Report + + :Name: YULISSA SHAW Study Date: 06/27/2024 Height: 64 in : :[facility] ReadingLocation: Weight: 185 lb : : Gender: Female BSA: 1.9 m2 : :: 1960 Age: 63 yrs BP: 130/89 mmHg: :Reason For Study: CARDIAC MURMUR : :Ordering Physician: ALONSO, : :RACHANA Performed By: Armida Rodriguez : :Referring: RACHANA SUMNER : + + Interpretation Summary The left ventricle is normal in size. The left ventricular ejection fraction is normal. The ejection fraction is estimated to be 60-65%. The right ventricle is normal in size and function. The aortic valve is trileaflet. There is mildly reduced leaflet mobility. The peak aortic velocity is 1.9 m/sec. There is no hemodynamically significant valvular aortic stenosis. There is mild mitral regurgitation. There is mild tricuspid regurgitation. The right ventricular systolic pressure is estimated to be at least 20 mmHg based on an estimated right atrial pressure of 3 mm Hg. There is mild luminal irregularity and echogenicity in the abdominal aorta, suggestive of aortic atherosclerotic disease. Procedure: A two-dimensional transthoracic echocardiogram with color flow and Doppler was performed. The study quality was technically adequate. There is no prior echocardiogram noted for this patient. The patient was in sinus rhythm with heart rates between 57-63 bpm during the exam. Left Ventricle: Proximal septal thickening is noted. The left ventricle is normal in size. There is no thrombus. The ejection fraction is estimated to be 60-65%. The left ventricular ejection fraction is normal. There are no focal wall motion abnormalities. Diastolic parameters suggest probable normal left ventricular diastolic function and normal filling pressures. Right Ventricle: The right ventricle is normal in size and function. Atria: The left atrium is mildly dilated. Right atrial size is normal. There is no Doppler evidence for an interatrial shunt. Mitral Valve: There is mild mitral annular calcification. There is mild mitral regurgitation. Aortic Valve: The aortic valve is trileaflet. The aortic valve is mildly calcified. There is mildly reduced leaflet mobility. The peak aortic velocity is 1.9 m/sec. The aortic valve mean gradient is 8 mmHg. The calculated aortic valve area is 1.5 cm2. There is no hemodynamically significant valvular aortic stenosis. There is trace aortic regurgitation. Tricuspid Valve: The tricuspid valve is normal. There is mild tricuspid regurgitation. The right ventricular systolic pressure is estimated to be at least 20 mmHg based on an estimated right atrial pressure of 3 mm Hg. Pulmonic Valve: The pulmonic valve leaflets are thin and pliable; valve motion is normal. There is trace pulmonic regurgitation. Great Vessels: The aortic root is normal size. The dimensions of the ascending aorta are normal. There is mild luminal irregularity and echogenicity in the abdominal aorta, suggestive of aortic atherosclerotic disease. The IVC is of normal diameter and collapses greater than 50% with a sniff. This suggests a low right atrial pressure of 3 mm Hg. Pericardium/ Pleura There is no pericardial effusion. There is no pleural effusion. MMode/2D Measurements & Calculations LVIDd: 4.5 cm LVOT diam: 2.2 cm LVIDs: 2.8 cm Ao root diam: 3.1 cm FS: 38.1 % asc Aorta Diam: 3.3 cm EPSS: 1.2 cm Ao Arch Diam (Prox Trans): 2.9 cm IVSd: 0.85 cm LVPWd: 0.95 cm LV jerome. diameter/BSA (cm/m^2): 2.4 LV sys. diameter/BSA (cm/m^2): 1.5 LA A2 area: 22.5 cm2 RA long axis: 4.8 cm LA A4 area: 20.2 cm2 RA area: 16.0 cm2 LA length (vol): 5.6 cm RA vol: 44.8 ml LA vol: 68.7 ml RA : 23.7 ml/m2 LA vol index: 36.3 ml/m2 IVC diam: 1.7 cm RVD1 (basal): 3.9 cm RVD2 (mid): 3.0 cm TAPSE: 2.1 cm Doppler Measurements & Calculations Ao V2 max: 189.8 cm/sec LVOT Max Adryan: 79.6 cm/sec Ao V2 mean: 137.1 cm/sec LV V1 max P.5 mmHg Ao max P.5 mmHg LV V1 VTI: 18.0 cm Ao mean P.3 mmHg RUSSELL(I,D): 1.6 cm2 Ao V2 VTI: 42.4 cm RUSSELL(V,D): 1.5 cm2 sev ratio: 0.43 RUSSELL indexed to BSA (cm^2/m^2): 0.82 MV E max adryan: 48.8 cm/sec TR max adryan: 207.5 cm/sec MV A max adryan: 43.9 cm/sec TR max P.2 mmHg MV E/A: 1.1 PA V2 max: 83.9 cm/sec Med Peak E' Adryan: 6.8 cm/sec PA V2 mean: 62.2 cm/sec E/E' med: 7.2 PA mean P.7 mmHg Lat Peak E' Adryan: 8.5 cm/sec PA pr(Accel): 34.5 mmHg E/E' lat: 5.8 E/e' average: 6.5 MV dec time: 0.18 sec SV(LVOT): 65.7 ml Reading Physician:10:45 AM
== END ==
LOC: ECHO 06:55
PROVIDERS: Family Provider Family Medicine; PCP Family Medicine; Referring Provider Family Medicine; Visit Provider Family Medicine
DX: R01.1 Cardiac murmur, unspecified (principal); I08.1 Rheumatic disorders of both mitral and tricuspid valves
CPT/HCPCS: 93306

== ENCOUNTER → 2024-08-16 09:43 | Outpatient (CLI) | payer OTHER, SELFPAY ==
--- NOTE | 2024-08-16 09:45 | DI.RAD.S_ITS ---
PROCEDURE: XR KNEE RT 3V INDICATIONS: KNEE PAIN TECHNIQUE: Three views of the right knee and two views of the left knee were acquired. COMPARISON: [facility], CR, XR KNEE LT 3V, 11/14/2022, 16:32. FINDINGS: Bones: There are no osseous abnormalities. Joints: Mild right medial tibial femoral and patellofemoral degeneration appreciated. Soft tissues: Normal IMPRESSION: Degeneration. Dictated by: Wilmer Manuel M.D. on 08/19/2024 at 10:04 Approved by: Wilmer Manuel M.D. on 08/19/2024 at 10:05
== END ==
PROVIDERS: Family Provider Family Medicine; PCP Family Medicine; Referring Provider Registered Nurse; Visit Provider Registered Nurse
DX: M25.561 Pain in right knee (principal); M17.11 Unilateral primary osteoarthritis, right knee
CPT/HCPCS: 73562

== ENCOUNTER 2025-02-17 14:12 | Observation (INO) | payer OTHER, SELFPAY ==
[2025-02-17] VITALS (15 sets, daily range): BP systolic 137–176; BP diastolic 75–96; PULSE 69–87; RESP 16–22; TEMP 36.4; O2SAT 95–100; BMI 32.9
--- NOTE | 2025-02-17 14:30 | DI.CT.S_ITS ---
PROCEDURE: CT HEAD/BRAIN WO CON INDICATIONS: short term memory loss TECHNIQUE: Noncontrast 4.5 mm thick angled axial sections acquired from the foramen magnum to the vertex, with coronal and sagittal reformats. For radiation dose reduction, the following was used: automated exposure control, adjustment of mA and/or kV according to patient size. COMPARISON: [facility], CT, CT ANGIO HEAD AND NECK, 02/17/2025, 14:42. FINDINGS: Image quality: Diagnostic. CSF spaces: Basal cisterns are patent. No extra-axial fluid collections. The ventricles are symmetric in size and shape. Brain: No intracranial bleeds or mass effect. There is cerebral volume loss, with resultant ventricular and sulcal prominence. There are periventricular and deep white matter chronic small vessel ischemic changes. There is intracranial internal carotid artery atherosclerosis. Skull and face: Calvarium and visualized facial bones appear intact, without suspicious lesions. Sinuses: Visualized sinuses and mastoids are clear. IMPRESSION: No acute intracranial hemorrhage is seen. No acute intracranial pathology. If there is strong clinical suspicion for an acute stroke, please consider a brain MRI for further evaluation, as it is more sensitive (assuming that there is no contraindication to MRI). Dictated by: Clive Choudhary M.D. on 02/17/2025 at 14:08 Approved by: Clive Choudhary M.D. on 02/17/2025 at 14:09
--- NOTE | 2025-02-17 14:30 | DI.CT.S_ITS ---
PROCEDURE: CT ANGIO HEAD AND NECK INDICATIONS: short term memory loss TECHNIQUE: After the administration of intravenous contrast, 1 mm thick sections acquired from the aortic arch through the [place]. 3-dimensional [id number] (MIP) and/or volume rendering reformats were acquired of the central intracranial vasculature and neck separately. For radiation dose reduction, the following was used: automated exposure control, adjustment of mA and/or kV according to patient size. COMPARISON: None. FINDINGS: Image quality: Limited by bolus timing, with venous contamination. There is artifact associated with the metallic hardware. Artifact from the metallic hardware is reduced by metal reconstruction algorithm. BRAIN: CSF spaces: Ventricles are normal in size and shape. Basal cisterns are patent. No extra-axial fluid collections. Brain: No significant abnormality of the brain can be seen. Skull and face: Calvarium and facial bones appear intact, without suspicious lesions. Orbits appear normal. Sinuses: Sinuses and mastoids are clear. HEAD CT ANGIOGRAPHY: Anterior circulation: Intracranial internal carotid arteries are normal in size and flow. The flow within the paired anterior cerebral arteries is normal and symmetric. The flow within the middle cerebral arteries is normal and symmetric. The anterior communicating artery is seen. No aneurysms are seen. Posterior circulation: Visualized portions of the vertebral arteries demonstrate normal caliber, and join to form a normal appearing basilar artery. Flow within the posterior cerebral arteries is normal and symmetric. No aneurysms are seen. NECK CT ANGIOGRAPHY: Carotid system: The great vessels demonstrate a conventional anatomy as they arise from the aortic arch. The origins of the common carotid arteries appear patent. The common carotid arteries demonstrate normal caliber and courses. The bifurcation regions demonstrate atherosclerotic irregularity and calcification. There is 50% narrowing seen involving the origin of the left internal carotid artery. No hemodynamically significant stenosis can be seen on the right. The more distal internal carotid arteries demonstrate normal course and caliber. Posterior circulation: The origins of the vertebral arteries both appear widely patent. The more superior extracranial portions of both vertebral arteries also demonstrate normal courses and calibers. They join to form a normal appearing basilar artery. Soft tissues: Visualized neck soft tissues demonstrate no suspicious abnormalities. Bones: No suspicious bony lesions. Visualized cervical spine appears normally aligned. Moderate cervical spine degenerative change is seen. IMPRESSION: No significant intracranial arterial abnormality is seen. Atherosclerotic irregularity and calcification can be seen involving both proximal internal carotid arteries, with 50% narrowing seen on the left. Any quantitative measurements of stenosis were performed using NASCET criteria. Dictated by: Clive Choudhary M.D. on 02/17/2025 at 14:06 Approved by: Clive Choudhary M.D. on 02/17/2025 at 14:08
[2025-02-17 14:36] LABS: Add Manual Diff / Slide Review NO; Basophils Absolute Auto 0 /uL (0-100); Basophils Percent Auto 0.6 % (0-2); Eosinophils Absolute Auto 100 /uL (0-450); Eosinophils Percent Auto 0.9 % (2-4); Hematocrit 42.5 % (36-46); Hemoglobin 14.3 g/dL (12.0-16.0); Lymphocytes Absolute Auto 1900 /uL (1100-4500); Lymphocytes Percent Auto 26.4 % (25-40); Mean Corpuscular HGB Conc 33.6 % (30-36); Mean Corpuscular Hemoglobin 29.8 PG (26-34); Mean Corpuscular Volume 88.6 fL (80-100); Monocytes Absolute Auto 600 /uL (0-900); Monocytes Percent Auto 7.9 % (3-14); Neutrophils Absolute Auto 4600 /uL (1500-7000); Neutrophils Percent Auto 64.2 % (50-75); Platelet Count 286 X10^3/uL (150-400); Red Cell Distribution Width 13.9 % (11.6-14.8); White Blood Cell Count 7.2 X10^3/uL (4.5-11.0)
[2025-02-17 14:41] LABS: Alanine Aminotransferase 23 IU/L (<35); Albumin 4.7 g/dL (3.5-5.0); Albumin Globulin Ratio 1.6 (1.0-2.8); Alkaline Phosphatase 75 U/L (38-126); Aspartate Aminotransferase 33 IU/L (14-36); BUN Creatinine Ratio 14.6 (6-22); Bilirubin Total 1.1 mg/dL (0.2-1.3); Blood Urea Nitrogen 13 mg/dL (7-17); Calcium 9.5 mg/dL (8.4-10.2); Carbon Dioxide 24 mmol/L (22-32); Chloride 108 mmol/L (98-107); Creatine Kinase 104 U/L (30-135); Estimated Glomerular Filt Rate > 60 mL/min (>60); Globulin 2.9 g/dL (1.7-4.1); Glucose 104 mg/dL (70-99); HEMOLYSIS < 15 (0-50); Potassium 3.5 mmol/L (3.4-5.1); Sodium 140 mmol/L (137-145); Total Protein 7.6 g/dL (6.3-8.2)
[2025-02-17 14:53] LABS: Troponin I < 0.012 ng/mL (0.01-0.034)
--- NOTE | 2025-02-17 15:15 | EKG_ITS ---
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
[2025-02-17 15:21] LABS: UR Morphine/Opiate cutoff 300 Negative (Negative); Ur Creatinine Normal (Normal); Ur Specific Gravity Normal (Normal); Urine Amphetamines Negative (Negative); Urine Barbiturates Negative (Negative); Urine Benzodiazepines Negative (Negative); Urine Cocaine Negative (Negative); Urine MDMA Negative (Negative); Urine Methadone Negative (Negative); Urine Methamphetamines Negative (Negative); Urine Oxycodone Negative (Negative); Urine Phencyclidine Negative (Negative); Urine Tetrahydrocannabinol Negative (Negative); Urine Tricyclic Antidepressant Negative (Negative); Urine pH Normal (Normal)
--- NOTE | 2025-02-17 19:06 | ED_ITS ---
HPI - Altered Mental Status General Chief Complaint: Altered Mental Status Stated Complaint: confusion Time Seen by Provider: 02/17/25 19:06 Source: patient and EMS Mode of arrival: EMS History of Present Illness HPI narrative: 64-year-old female with hx of benign essential tremor, scoliosis presents with altered mental status this morning having no recollection of her phone conversation with her sister at noon or with her early afternoon had to be redirected and reoriented on multiple occasions by family as she still can not remember her morning or afternoon and had no recollection of any events that took place. This is unlike her but she is now complaining just of a headache at this point. Denies any CVA, TIA history, chest pain, shortness breath, dizziness, blurred vision, difficulty speaking, swallowing, cough, runny nose, sore throat, fever, chills, body, aches, nausea, vomiting, and diarrhea. Other than what is stated 14 point review of system is negative. Related Data Home Medications Medication Instructions Recorded Confirmed naltrexone 50 mg tablet 4.5 mg PO DAILY 12/11/19 05/22/24 ibuprofen 200 mg tablet 600 mg PO BID PRN Pain (Scale 03/18/20 05/22/24 Score 1-3) Allergies Allergy/AdvReac Type Severity Reaction Status Date / Time codeine Allergy Unknown Fainting Verified 05/22/24 14:43 Review of Systems Review of Systems ROS Unobtainable: All systems reviewed & are unremarkable except as noted in HPI and below Patient History Medical History Benign essential tremor Scoliosis ACL tear Right knee DJD CTS (carpal tunnel syndrome) Acute meniscal tear of right knee History of colon polyps Surgical History No pertinent past surgical history Family History Father Heart disease Diabetes mellitus Mother Lung cancer Social History household members: spouse Smoking Status: Never smoker Smoking Status: Never smoker alcohol intake frequency: holidays/special occasions only Exam Narrative Exam Narrative: GENERAL: [64] year old patient appears stated age. Well-developed patient, in mild distress. HEAD: Atraumatic. Normocephalic. EYES: Pupils equal round and reactive. Extraocular motions intact. No scleral icterus. No injection or drainage. ENT: Nose without bleeding, purulent drainage. Throat without erythema, tonsillar hypertrophy or exudate. Airway patent. NECK: Trachea midline. Non tender CARDIOVASCULAR: Regular rate and rhythm without murmurs, gallops, or rubs. RESPIRATORY: Clear to auscultation. Breath sounds equal bilaterally. No wheezes, rales, or rhonchi. GASTROINTESTINAL: Abdomen soft, non-tender, nondistended. EXTREMITIES: No edema or joint tenderness. BACK: Nontender without deformity or crepitance. No flank tenderness. NEURO: AOx3. Nonfocal neuro exam GCS of 15 bilateral upper and lower extremity 5/5 negative pronator drift opposite heel to grubbs intact and jaewek-tl-[id number] test intact and rapid alternating movement intact SKIN: No rash or erythema of visible areas Initial Vital Signs Initial Vital Signs: Vital Signs Temperature 97.5 F L 02/17/25 14:37 Course Orders Ordered: ED Orders 02/17/25 14:20 CBC Auto Diff [Complete Blood Count AUTO DIFF] Stat CMP [Comprehensive Metabolic Panel] Stat Troponin & CK Cardiac Panel Stat 02/17/25 14:30 CT angio head and neck Stat CT head/brain wo con Stat EKG-12 Lead Stat 02/17/25 15:00 Urine Drug Screen, Rapid Stat 02/17/25 19:48 Ammonia (NH3) Stat TSH [Thyroid Stimulating Hormone] Stat Discontinued Medications Acetaminophen (Acetaminophen 325 Mg Tablet) 975 mg PO NOW ONE Stop: 02/17/25 19:20 Last Admin: 02/17/25 19:59 Dose: 975 mg Documented By: MAN Vital Signs Vital signs: Vital Signs - 8 hr 02/17/25 14:37 02/17/25 17:55 02/17/25 18:17 Temperature 97.5 F L Pulse Rate 87 85 Respiratory Rate 17 22 Blood Pressure 157/90 H Pulse Oximetry 100 Oxygen Delivery Method Room Air 02/17/25 18:18 02/17/25 18:18 02/17/25 18:30 Temperature Pulse Rate 82 79 Respiratory Rate 17 19 Blood Pressure 176/92 H Pulse Oximetry 98 96 Oxygen Delivery Method 02/17/25 18:31 02/17/25 18:31 02/17/25 19:00 Temperature Pulse Rate 81 79 Respiratory Rate 16 20 Blood Pressure 158/85 H Pulse Oximetry 98 96 Oxygen Delivery Method 02/17/25 19:00 02/17/25 19:30 02/17/25 19:30 Temperature Pulse Rate 76 Respiratory Rate 20 Blood Pressure 158/82 H 146/84 H Pulse Oximetry 97 Oxygen Delivery Method 02/17/25 19:48 02/17/25 19:48 02/17/25 19:54 Temperature Pulse Rate 79 81 Respiratory Rate 22 17 Blood Pressure 167/91 H Pulse Oximetry 96 97 Oxygen Delivery Method 02/17/25 19:54 02/17/25 20:00 02/17/25 20:00 Temperature Pulse Rate 75 Respiratory Rate 22 Blood Pressure 174/96 H 152/84 H Pulse Oximetry 95 Oxygen Delivery Method MDM - Altered Mental Status Lab Data 02/17/25 14:20 02/17/25 14:20 Labs: Lab Results 02/17/25 02/17/25 02/17/25 Range/Units 14:20 15:00 19:48 WBC 7.2 (4.5-11.0) X10^3/uL RBC 4.80 (4.0-5.2) X10^6/uL Hgb 14.3 (12.0-16.0) g/dL Hct 42.5 (36-46) % MCV 88.6 (80-100) fL MCH 29.8 (26-34) PG MCHC 33.6 (30-36) % RDW 13.9 (11.6-14.8) % Plt Count 286 (150-400) X10^3/uL Neut % (Auto) 64.2 (50-75) % Lymph % (Auto) 26.4 (25-40) % [place] % (Auto) 7.9 (3-14) % Eos % (Auto) 0.9 L (2-4) % Baso % (Auto) 0.6 (0-2) % Neut # (Auto) 4600 (1643-6541) /uL Lymph # (Auto) 1900 (7641-0533) /uL [place] # (Auto) 600 (0-900) /uL Eos # (Auto) 100 (0-450) /uL Baso # (Auto) 0 (0-100) /uL Sodium 140 (137-145) mmol/L Potassium 3.5 (3.4-5.1) mmol/L Chloride 108 H (98-107) mmol/L Carbon Dioxide 24 (22-32) mmol/L BUN 13 (7-17) mg/dL Creatinine 0.89 (0.52-1.04) mg/dL Estimated GFR > 60 (>60) mL/min BUN/Creatinine Ratio 14.6 (6-22) Glucose 104 H (70-99) mg/dL Calcium 9.5 (8.4-10.2) mg/dL Total Bilirubin 1.1 (0.2-1.3) mg/dL AST 33 (14-36) IU/L ALT 23 (<35) IU/L Alkaline Phosphatase 75 (38-126) U/L Ammonia < 9 L (9-30) umol/L Total Creatine Kinase 104 (30-135) U/L Troponin I < 0.012 (0.01-0.034) ng/mL Total Protein 7.6 (6.3-8.2) g/dL Albumin 4.7 (3.5-5.0) g/dL Globulin 2.9 (1.7-4.1) g/dL Albumin/Globulin Ratio 1.6 (1.0-2.8) TSH 1.20 (0.47-4.68) uIU/mL U Opiates 300ng/mL cut Negative (Negative) Ur Oxycodone Screen Negative (Negative) Urine Methadone Screen Negative (Negative) Ur Barbiturates Screen Negative (Negative) U Tricyclic Antidepress Negative (Negative) Ur Phencyclidine Scrn Negative (Negative) Ur Amphetamines Screen Negative (Negative) U Methamphetamines Scrn Negative (Negative) Ur MDMA Scrn (Ecstasy) Negative (Negative) U Benzodiazepines Scrn Negative (Negative) Urine Cocaine Screen Negative (Negative) U Marijuana (THC) Screen Negative (Negative) Urine pH Normal (Normal) Urine Specific [place] Normal (Normal) Ur Creatinine Normal (Normal) Imaging Data CT scan - head: Radiologist's Impression: [address] [address] [address] Scan Report Signed Patient: Ce Johnson MR#: [id number] : 1960 Acct:[id number] Age/Sex: 64 / F Date of Service: 02/17/25 Loc: ED Accession Number: [id number] Procedure: CT head/brain wo con Ordering Provider: Yi Blackman D.O. PROCEDURE: CT HEAD/BRAIN WO CON INDICATIONS: short term memory loss TECHNIQUE: Noncontrast 4.5 mm thick angled axial sections acquired from the foramen magnum to the vertex, with coronal and sagittal reformats. For radiation dose reduction, the following was used: automated exposure control, adjustment of mA and/or kV according to patient size. COMPARISON: [facility], CT, CT ANGIO HEAD AND NECK, 02/17/2025, 14:42. FINDINGS: Image quality: Diagnostic. CSF spaces: Basal cisterns are patent. No extra-axial fluid collections. The ventricles are symmetric in size and shape. Brain: No intracranial bleeds or mass effect. There is cerebral volume loss, with resultant ventricular and sulcal prominence. There are periventricular and deep white matter chronic small vessel ischemic changes. There is intracranial internal carotid artery atherosclerosis. Skull and face: Calvarium and visualized facial bones appear intact, without suspicious lesions. Sinuses: Visualized sinuses and mastoids are clear. IMPRESSION: No acute intracranial hemorrhage is seen. No acute intracranial pathology. If there is strong clinical suspicion for an acute stroke, please consider a brain MRI for further evaluation, as it is more sensitive (assuming that there is no contraindication to MRI). [place] [address] CT Scan Report Signed Patient: Ce Johnson MR#: [id number] : 1960 Acct:[id number] Age/Sex: 64 / F Date of Service: 02/17/25 Loc: ED Accession Number: [id number] Procedure: CT angio head and neck Ordering Provider: Yi Blackman D.O. PROCEDURE: CT ANGIO HEAD AND NECK INDICATIONS: short term memory loss TECHNIQUE: After the administration of intravenous contrast, 1 mm thick sections acquired from the aortic arch through the [place] of [place]. 3-dimensional ygxklus-xudsckcit-jrcrszmypn (MIP) and/or volume rendering reformats were acquired of the central intracranial vasculature and neck separately. For radiation dose reduction, the following was used: automated exposure control, adjustment of mA and/or kV according to patient size. COMPARISON: None. FINDINGS: Image quality: Limited by bolus timing, with venous contamination. There is artifact associated with the metallic hardware. Artifact from the metallic hardware is reduced by metal reconstruction algorithm. BRAIN: CSF spaces: Ventricles are normal in size and shape. Basal cisterns are patent. No extra-axial fluid collections. Brain: No significant abnormality of the brain can be seen. Skull and face: Calvarium and facial bones appear intact, without suspicious lesions. Orbits appear normal. Sinuses: Sinuses and mastoids are clear. HEAD CT ANGIOGRAPHY: Anterior circulation: Intracranial internal carotid arteries are normal in size and flow. The flow within the paired anterior cerebral arteries is normal and symmetric. The flow within the middle cerebral arteries is normal and symmetric. The anterior communicating artery is seen. No aneurysms are seen. Posterior circulation: Visualized portions of the vertebral arteries demonstrate normal caliber, and join to form a normal appearing basilar artery. Flow within the posterior cerebral arteries is normal and symmetric. No aneurysms are seen. NECK CT ANGIOGRAPHY: Carotid system: The great vessels demonstrate a conventional anatomy as they arise from the aortic arch. The origins of the common carotid arteries appear patent. The common carotid arteries demonstrate normal caliber and courses. The bifurcation regions demonstrate atherosclerotic irregularity and calcification. There is 50% narrowing seen involving the origin of the left internal carotid artery. No hemodynamically significant stenosis can be seen on the right. The more distal internal carotid arteries demonstrate normal course and caliber. Posterior circulation: The origins of the vertebral arteries both appear widely patent. The more superior extracranial portions of both vertebral arteries also demonstrate normal courses and calibers. They join to form a normal appearing basilar artery. Soft tissues: Visualized neck soft tissues demonstrate no suspicious abnormalities. Bones: No suspicious bony lesions. Visualized cervical spine appears normally aligned. Moderate cervical spine degenerative change is seen. IMPRESSION: No significant intracranial arterial abnormality is seen. Atherosclerotic irregularity and calcification can be seen involving both proximal internal carotid arteries, with 50% narrowing seen on the left. Any quantitative measurements of stenosis were performed using NASCET criteria. Dictated by: Clive Choudhary M.D. on 02/17/2025 at 14:06 Approved by: Clive Choudhary M.D. on 02/17/2025 at 14:08 [facility] Narrative Medical decision making narrative: All lab work vital signs nurse triage note medication list previous ER visits and imaging studies all reviewed. CT head without contrast did not show any acute intracranial hemorrhage or pathology. CTA head and neck did not show any significant intracranial arterial abnormality but there was 50% narrowing seen on both proximal internal carotid arteries on the left. Patient is now back to her baseline GCS of 15 nonfocal neuro exam but she still can not recall what happened this morning or afternoon. Case discussed with Dr. Tanner who has graciously accepted patient for inpatient admission. Differential diagnosis includes CVA TIA seizure hemorrhage or mass electrolyte derangement. Discharge Plan Departure Patient Disposition: Admitted as Observation Clinical Impression: TGA (transient global amnesia) Admit Date/Time: 02/17/25 21:33 Admit Provider: Bharti Rucker
[2025-02-17] MEDS: ACETAMINOPHEN 325 MG TABLET 975 MG PO (19:59)
[2025-02-17 20:08] LABS: Ammonia (NH3) < 9 umol/L (9-30)
--- NOTE | 2025-02-17 21:56 | DI.MRI.S_ITS ---
PROCEDURE: MR HEAD/BRAIN WO CON INDICATIONS: amnesia, r/o TIA TECHNIQUE: Noncontrast axial T1 spin echo, axial T2 fast spin echo, sagittal and axial FLAIR, coronal T2 fast spin echo, axial gradient echo, axial diffusion and ADC through the brain. COMPARISON: None. FINDINGS: Image quality: Excellent. CSF Spaces: Basal cisterns are patent. No extra-axial fluid collections. Ventricles are normal in size and shape. Brain: No intracranial masses or hemorrhage. Mild cerebral volume loss. Minimal degree of patchy high FLAIR signal within the periventricular subcortical white matter. Wetzel/white matter interface is normal. Brainstem appears normal. Diffusion-weighted images demonstrate no acute infarct. No chronic ischemic insults. Normal intravascular flow voids are present. Skull and face: Calvarium has normal marrow signal. Orbits appear normal. Sinuses: Sinuses and mastoids are clear. IMPRESSION: 1. No acute process. No recent infarct. 2. Mild volume loss. Minimal small vessel ischemic disease. Dictated by: Jigar Cota M.D. on 02/18/2025 at 11:24 Approved by: Jigar Cota M.D. on 02/18/2025 at 11:25
--- NOTE | 2025-02-17 22:35 | DI.ECHO.S_ITS ---
[facility]+ [facility] : : [address] : : [place] : : [id number] : : Phone: [phone] Echocardiogram Report + + :Name: YULISSA SHAW Study Date: 02/18/2025 Height: 64.5 in: :[facility] ReadingLocation: Weight: 192 lb : : Gender: Female BSA: 1.9 m2 : :: 1960 Age: 64 yrs : :Reason For Study: TIA : :Ordering Physician: JOVON, : :DEWEY Performed By: Armida Rodriguez : :Referring: JUANI HENDERSON : + + Interpretation Summary 1) Normal left ventricular thickness, size, wall motion, and systolic function (EF 60-65%). 2) Normal right ventricular size and function. 3) There is mild aortic stenosis (valve area 1.5cm2, mean gradient 10mmHg, severity ratio 0.45). 4) Injection of contrast documented no interatrial shunt. 5) Compared to the Echo done 06/27/2024, no significant change. Procedure: A two-dimensional transthoracic echocardiogram with color flow and Doppler was performed. The study quality was technically adequate. Comparison is made with the echocardiogram of 06/27/2024. The patient was in sinus rhythm with heart rates between 58-70 bpm during the exam. Left Ventricle: The left ventricle is normal in size and wall thickness. The ejection fraction is estimated to be 60-65%. Left ventricular systolic function appears normal without focal wall motion abnormalities. Diastolic parameters suggest a relaxation abnormality of the left ventricle, consistent with probable normal filling pressures. Right Ventricle: The right ventricle is mildly dilated. The right ventricular systolic function is normal. Atria: The left atrium is moderately dilated. Right atrial size is normal. There is no Doppler evidence for an interatrial shunt. Injection of contrast documented no interatrial shunt. Mitral Valve: The mitral valve leaflets appear mildly thickened, but open well. There is mild mitral regurgitation. Aortic Valve: The aortic valve is mildly calcified. There is discrete nodular thickening of the non- coronary cusp. There is mild aortic stenosis. The peak aortic velocity is 2.2 m/sec. The aortic valve mean gradient is 10 mmHg. The calculated aortic valve area is 1.5 cm2. No aortic regurgitation is present. Tricuspid Valve: The tricuspid valve leaflets are thin and pliable. There is mild tricuspid regurgitation. The right ventricular systolic pressure is estimated to be at least 22 mmHg based on an estimated right atrial pressure of 3 mm Hg. Pulmonic Valve: The pulmonic valve leaflets are thin and pliable; valve motion is normal. There is no pulmonic valvular regurgitation. Great Vessels: The aortic root is normal size. The dimensions of the ascending aorta are normal. The IVC is of normal diameter and collapses greater than 50% with a sniff. This suggests a low right atrial pressure of 3 mm Hg. Pericardium/ Pleura There is no pericardial effusion. There is no pleural effusion. MMode/2D Measurements & Calculations LVIDd: 4.6 cm LVOT diam: 2.1 cm LVIDs: 2.9 cm Ao root diam: 3.2 cm FS: 37.1 % asc Aorta Diam: 3.2 cm EPSS: 0.46 cm Ao Arch Diam (Prox Trans): 3.1 cm IVSd: 0.84 cm LVPWd: 0.94 cm LV jerome. diameter/BSA (cm/m^2): 2.4 LV sys. diameter/BSA (cm/m^2): 1.5 LA A2 area: 20.9 cm2 RA long axis: 4.5 cm LA A4 area: 23.2 cm2 RA area: 12.5 cm2 LA length (vol): 5.9 cm RA vol: 29.4 ml LA vol: 70.4 ml RA : 15.2 ml/m2 LA vol index: 36.4 ml/m2 IVC diam: 2.0 cm RVD1 (basal): 4.1 cm TAPSE: 2.6 cm Doppler Measurements & Calculations Ao V2 max: 217.8 cm/sec LVOT Max Adryan: 92.5 cm/sec Ao V2 mean: 142.7 cm/sec LV V1 max P.4 mmHg Ao max P.5 mmHg LV V1 VTI: 21.1 cm Ao mean P.1 mmHg RUSSELL(I,D): 1.6 cm2 Ao V2 VTI: 46.5 cm RUSSELL(V,D): 1.5 cm2 sev ratio: 0.45 RUSSLEL indexed to BSA (cm^2/m^2): 0.84 MV E max adryan: 46.5 cm/sec TR max adryan: 216.7 cm/sec MV A max adryan: 48.4 cm/sec TR max P.8 mmHg MV E/A: 0.96 PA V2 max: 74.6 cm/sec Med Peak E' Adryan: 7.0 cm/sec PA V2 mean: 48.9 cm/sec E/E' med: 6.7 PA mean P.1 mmHg Lat Peak E' Adryan: 9.8 cm/sec PA pr(Accel): 31.5 mmHg E/E' lat: 4.7 E/e' average: 5.7 MV dec time: 0.24 sec SV(LVOT): 75.9 ml Reading Physician:09:23 AM
[2025-02-18] VITALS: BP 145/81; PULSE 69; RESP 18; TEMP 36.1; O2SAT 97
[2025-02-18 04:00] VITALS: BP 120/78; PULSE 64; RESP 17; TEMP 36.7; O2SAT 97
[2025-02-18 08:00] VITALS: BP 129/88; PULSE 63; RESP 15; TEMP 36.6; O2SAT 100
--- NOTE | 2025-02-18 08:30 | P.HP_ITS ---
History of Present Illness History of Present Illness Date Patient Seen: 02/18/25 Time Patient Seen: 08:30 Chief complaint: confusion Narrative: Patient a 64-year-old female otherwise healthy who presents with acute onset of memory change. She does not remember much over the last 24 hours until this morning when she feels like things are normal. She apparently called her yesterday afternoon and was asking him about when he was coming home from work. Apparently he has been retired now for 6 years. At that time he knew there was something going on and called 911. She was brought to the hospital at that time. During the course of her emergency room and being brought up to the floor she remembers very little. Has no memory of her CT scans. Other than people told her she had them. She otherwise feels as if things have been going well. She has had no significant change in activity. She has been walking and feeling well. No headache. No numbness tingling no motor dysfunction. She has not had any witnessed seizure activity but does not know. No one was home with her at the time. Was acute onset. She has had no fevers chills diarrhea change in urine or other complaints. Up until yesterday he felt well. Today she feels well. She can remember dates time she remembers what she was told about her carotids. Has no other complaint or problem [facility] Medical History Benign essential tremor Scoliosis ACL tear Right knee DJD CTS (carpal tunnel syndrome) Acute meniscal tear of right knee History of colon polyps Surgical History No pertinent past surgical history Family History Father Heart disease Diabetes mellitus Mother Lung cancer Social History household members: spouse Smoking Status: Never smoker Meds Home Medications and Allergies Home Medications Medication Instructions Recorded Confirmed Type naltrexone 50 mg tablet 4.5 mg PO DAILY 12/11/19 05/22/24 History ibuprofen 200 mg tablet 600 mg PO BID PRN Pain (Scale 03/18/20 05/22/24 History Score 1-3) Allergies Allergy/AdvReac Type Severity Reaction Status Date / Time codeine Allergy Unknown Fainting Verified 05/22/24 14:43 Review of Systems Review of Systems Narrative: Negative except above Exam Vital Signs (past 8 hours): - 02/18/25 04:00 02/18/25 08:00 Temperature 98.1 F 98 F Pulse Rate 64 63 Respiratory Rate 17 15 Blood Pressure 120/78 129/88 Pulse Oximetry 97 100 Oxygen Flow Rate 0 Oxygen Delivery Method Room Air Oxygen Flow Rate 0 Narrative Exam Narrative: Alert female in no acute distress lying in bed smiling interactive knows who I am. HEENT exam unremarkable neck supple without adenopathy JVD or bruits lungs are clear. Heart is regular rate and rhythm. Abdomen is soft positive bowel sounds nontender. Extremities without cyanosis clubbing edema. Neurologic exam shows cranial nerves 2-12 are intact motor is 5/5. Reflexes are 2+ and symmetric. Tfpjba-at-efdz lwqh-zl-xquz are normal. She is alert and oriented x3. Objective Labs 02/17/25 14:20 02/17/25 14:20 Labs: Laboratory Results - last 24 hr 02/17/25 02/17/25 02/17/25 14:20 15:00 19:48 WBC 7.2 RBC 4.80 Hgb 14.3 Hct 42.5 MCV 88.6 MCH 29.8 MCHC 33.6 RDW 13.9 Plt Count 286 Neut % (Auto) 64.2 Lymph % (Auto) 26.4 [place] % (Auto) 7.9 Eos % (Auto) 0.9 L Baso % (Auto) 0.6 Neut # (Auto) 4600 Lymph # (Auto) 1900 [place] # (Auto) 600 Eos # (Auto) 100 Baso # (Auto) 0 Sodium 140 Potassium 3.5 Chloride 108 H Carbon Dioxide 24 BUN 13 Creatinine 0.89 Estimated GFR > 60 BUN/Creatinine Ratio 14.6 Glucose 104 H Calcium 9.5 Total Bilirubin 1.1 AST 33 ALT 23 Alkaline Phosphatase 75 Ammonia < 9 L Total Creatine Kinase 104 Troponin I < 0.012 Total Protein 7.6 Albumin 4.7 Globulin 2.9 Albumin/Globulin Ratio 1.6 TSH 1.20 U Opiates 300ng/mL cut Negative Ur Oxycodone Screen Negative Urine Methadone Screen Negative Ur Barbiturates Screen Negative U Tricyclic Antidepress Negative Ur Phencyclidine Scrn Negative Ur Amphetamines Screen Negative U Methamphetamines Scrn Negative Ur MDMA Scrn (Ecstasy) Negative U Benzodiazepines Scrn Negative Urine Cocaine Screen Negative U Marijuana (THC) Screen Negative Urine pH Normal Urine Specific [place] Normal Ur Creatinine Normal Assessment & Plan Assessment & Plan narrative: Total global amnesia. Resolved. Fits a pattern. Usually resolved in the 1st 24 hours. We discussed this. She has an MRI scheduled for today. If this is negative probably go home later today. Will review information already done some reading and give them a better idea what this represents. Carotid stenosis 50% something we do not need to intervene with but would not be bad to be on a baby aspirin a day and will start statin. Code status. Full GI prophylaxis not needed Weight gain. On naltrexone. Disposition. Expect home later today. Time-Based Coding :: [TOTAL MINUTES] spent with patient and on the chart (including review of chart, obtaining history, exam, reviewing outside data, placing orders, documenting exam and treatment plan, and counseling patient) on [DATE]. Quality VTE Deep Vein Thrombosis/Pulmonary Embolism Present on Admission: No
[2025-02-18] MEDS: IBUPROFEN 600 MG TABLET PO (09:36)
[2025-02-18] MEDS: ENOXAPARIN 40 MG/0.4 ML SYRINGE SUBCUT (09:37)
--- NOTE | 2025-02-18 11:40 | CM.DANOTE ---
Initial DCP Assessment Visit Note Reviewed EMR and team rounds for status updates. Met with pt at bedside to introduce self and role, pt was found to be alert/oriented, able to discuss her plan for home d/c later this afternoon after her MR/Brain results have been read. Pt lives independently at baseline in her own home with her spouse here in [place]. Her spouse will be transporting her home. Pt declined any CM d/c assistance/resource needs at this time. Payor: [facility] PCP: Dr. Walden Pt is a 64 year-old F whopresented to the ED via EMS last evening with AMS. She shared that she had no recollection of having spoken to both her sister and over the course of the morning yesterday, and that family had to redirect and reorient her several times throughout the early afternoon. Pt shared that she also did not remember the EMS ride to the ED. CT head was negative for any abnormalities, MR/Brain results are pending. Pt is presumed to have had a TIA, however she feels that she is completely back to her baseline today. She does have a plan to f/u with Dr. Walden post d/c for stroke prevention planning. DCP will continue to monitor for any further evolving d/c needs prior to her departure. Discharge Planning/Care Management CM Discharge Assessment Start: 02/17/25 22:09 Freq: Status: Active Protocol: Document 02/18/25 11:38 DPL (Rec: 02/18/25 11:40 DPL [id number]) Discharge Planning Assessment Assigned Non Destructive Evaluation Manager PHONG Moise Advance Directives? No History Provided By Patient,Significant Other, Medical Record Has Patient been admitted in last 30 No days? Prior Living Arrangements House Household Members spouse Type of transporation used prior to Drives own vehicle admit Independent with ADL's Yes Is patient alert and oriented? Yes Comment N/A Comment No identified d/c needs at this time. Barriers to Discharge No Referrals Initiated None needed Whiteboard Updated in Patient Room with Yes name and ext. # of Non Destructive Evaluation Manager Review Status In Process
[2025-02-18 12:00] VITALS: BP 123/67; PULSE 57; RESP 18; TEMP 36.9; O2SAT 99
--- NOTE | 2025-02-18 13:27 | PM.DS.1 ---
History of Present Illness History of Present Illness Chief complaint: confusion Narrative: Patient a 64-year-old female otherwise healthy who presents with acute onset of memory change. She does not remember much over the last 24 hours until this morning when she feels like things are normal. She apparently called her yesterday afternoon and was asking him about when he was coming home from work. Apparently he has been retired now for 6 years. At that time he knew there was something going on and called 911. She was brought to the hospital at that time. During the course of her emergency room and being brought up to the floor she remembers very little. Has no memory of her CT scans. Other than people told her she had them. She otherwise feels as if things have been going well. She has had no significant change in activity. She has been walking and feeling well. No headache. No numbness tingling no motor dysfunction. She has not had any witnessed seizure activity but does not know. No one was home with her at the time. Was acute onset. She has had no fevers chills diarrhea change in urine or other complaints. Up until yesterday he felt well. Today she feels well. She can remember dates time she remembers what she was told about her carotids. Has no other complaint or problem Discharge Providers Provider Date of admission: 02/17/25 21:33 Discharge Date: 02/18/25 Primary care physician: Sheryl Walden MD Discharge provider: Maximilian Contreras MD Summary Hospital Course Discharge Diagnosis: Total global amnesia Carotid obstruction Depression Hospital Course: Total global amnesia. Patient was admitted with no memory. She developed her memory back acutely by the end of the night. This morning she was feeling well. Showed no defects on neurologic exam or memory testing. CT scan, CT angio and MRI showed no abnormalities except for some slight decrease in brain size. No lesions or other changes. Tele was normal echo showed no change aortic stenosis. Unchanged from previous echo. Otherwise no change. Patient is feeling well back to normal. We discussed treatment. At this point there really is no treatment her risk of recurrence is somewhere around 15%. Does not really have the risk factors for high recurrence. Would not be unreasonable to take a baby aspirin in case this was questionable for vascular given her carotids but I do not think she has 2 and we discussed the risk. She will make a choice. Carotid stenosis. 50%. Certainly not treatable. Doubt this has anything to do with her global amnesia. We discussed this. Will place on statin. Will place it from clinic. Does not have rosuvastatin on formulary here. I would prefer to be on a water-soluble. Patient understands. Questions answered. Could use an aspirin a day baby aspirin if she chooses. Reduce risk. Discussed side effects of both medication. Depression. Continued naloxone. Follow-up [address] Walden Exam Vital Signs (past 8 hours): - 02/18/25 08:00 02/18/25 12:00 Temperature 98 F 98.5 F Pulse Rate 63 57 L Respiratory Rate 15 18 Blood Pressure 129/88 123/67 Pulse Oximetry 100 99 Oxygen Delivery Method Room Air Oxygen Flow Rate 0 Narrative Exam Narrative: See physical exam from this morning Objective Labs 02/17/25 14:20 02/17/25 14:20 Labs: Laboratory Results - last 24 hr 02/17/25 02/17/25 02/17/25 14:20 15:00 19:48 WBC 7.2 RBC 4.80 Hgb 14.3 Hct 42.5 MCV 88.6 MCH 29.8 MCHC 33.6 RDW 13.9 Plt Count 286 Neut % (Auto) 64.2 Lymph % (Auto) 26.4 [place] % (Auto) 7.9 Eos % (Auto) 0.9 L Baso % (Auto) 0.6 Neut # (Auto) 4600 Lymph # (Auto) 1900 [place] # (Auto) 600 Eos # (Auto) 100 Baso # (Auto) 0 Sodium 140 Potassium 3.5 Chloride 108 H Carbon Dioxide 24 BUN 13 Creatinine 0.89 Estimated GFR > 60 BUN/Creatinine Ratio 14.6 Glucose 104 H Calcium 9.5 Total Bilirubin 1.1 AST 33 ALT 23 Alkaline Phosphatase 75 Ammonia < 9 L Total Creatine Kinase 104 Troponin I < 0.012 Total Protein 7.6 Albumin 4.7 Globulin 2.9 Albumin/Globulin Ratio 1.6 TSH 1.20 U Opiates 300ng/mL cut Negative Ur Oxycodone Screen Negative Urine Methadone Screen Negative Ur Barbiturates Screen Negative U Tricyclic Antidepress Negative Ur Phencyclidine Scrn Negative Ur Amphetamines Screen Negative U Methamphetamines Scrn Negative Ur MDMA Scrn (Ecstasy) Negative U Benzodiazepines Scrn Negative Urine Cocaine Screen Negative U Marijuana (THC) Screen Negative Urine pH Normal Urine Specific [place] Normal Ur Creatinine Normal PFSH Medical History Benign essential tremor Scoliosis ACL tear Right knee DJD CTS (carpal tunnel syndrome) Acute meniscal tear of right knee History of colon polyps Surgical History No pertinent past surgical history Family History Father Heart disease Diabetes mellitus Mother Lung cancer Social History household members: spouse Smoking Status: Never smoker Discharge Assessment & Plan Assessment and Plan Assessment: Improved Plan of Treatment: Discharge to home Discharge Plan Discharge Plan Patient Disposition: Home Discharge orders & Medications Prescriptions: Continued naltrexone 50 mg tablet 4.5 mg PO DAILY ibuprofen 200 mg tablet 600 mg PO BID PRN (Reason: Pain (Scale Score 1-3)) Follow up/Referrals: Sheryl Walden MD [Primary Care Provider] - 03/04/25 9:00 am (appt:03/04 @ 9:[address] Walden ) Discharge Health Status Multidrug resistant organism: No MDRO Diet/Activity/Treatments Diet: Diet as Tolerated Activity: as tolerated Visit Report/Discharge Packet Stand Alone Forms: Patient Portal/API, Stroke Signs & Symptoms Discharge Data Primary Care Provider: Sheryl Walden Attending Provider: Bharti Rucker Admit Date/Time: 02/17/25 21:33 Quality VTE Deep Vein Thrombosis/Pulmonary Embolism Present on Admission: No
--- NOTE | 2025-02-18 14:02 | PC.NURSE ---
Pt is dressed and ready for discharge home with Spouse. IV has been removed. Went over d/c instructions with Pt and Spouse-discussed d/c meds, time of last dose, reviewed stroke education, encouraged fluid intake to prevent constipation or dehydration. Pt denied further questions and was taken out via w/c by RN to POV with Spouse and all belongings.
== END 2025-02-18 14:04 | disposition home or self-care (01) ==
LOC: ED 21:23 → AC 21:34
PROVIDERS: Emergency Medicine; Admitting Provider Family Medicine; Emergency Provider Family Medicine; Family Provider Family Medicine; PCP Family Medicine; Visit Provider Family Medicine
DX: G45.4 Transient global amnesia (principal); I65.22 Occlusion and stenosis of left carotid artery
CPT/HCPCS: 36415; 70450; 70496; 70498; 70551; 80053; 80305; 82140; 82550; 84443; 84484; 85025; 93005; 93306; 96372; 99284; G0378; J1650; Q9967

== ENCOUNTER → 2025-03-29 09:56 | Outpatient (CLI) | payer OTHER, SELFPAY ==
[2025-02-17 22:37] VITALS: BMI 32.9
--- NOTE | 2025-03-29 09:59 | DI.MG.S_ITS ---
MM screening mammo BI: 03/29/2025. BI-RADS: 1 CLINICAL: 64-year old female for bilateral screening mammogram. Tyrer-Cuzick lifetime risk of 20.6%. Current reported family history of breast cancer: sister. PRIOR EXAMS 03/02/2024, 02/25/2021, 10/23/2019, 05/11/2017. MAMMOGRAPHY TECHNIQUE: 2D and 3D (tomosynthesis) digital mammographic views obtained, with additional images as needed for full coverage. Current study was also evaluated with a Computer Aided Detection (CAD) system. DENSITY C. The breasts are heterogeneously dense, which may obscure small masses. MAMMOGRAPHY FINDINGS Bilateral: No suspicious mass, asymmetry, microcalcification, or other abnormality seen. No significant change from comparison. IMPRESSION: * No evidence of malignancy. RECOMMENDATIONS Bilateral * According to the Tyrer-Cuzick Risk Assessment Model, based on the information provided your patient has a greater than 20% lifetime risk for developing breast cancer. Consider supplemental screening with breast MRI and participation in a high risk screening program. * Annual screening mammography. OVERALL ASSESSMENT CATEGORY BI-RADS-1: Negative. The [employer] recommends annual screening mammography beginning at age 40 for women with average risk of breast cancer. ELECTRONICALLY SIGNED: Elena Nowak M.D. on 03/31/2025 at 03:37:45 PM PT Interpreting Station ID: [id number]
== END ==
LOC: MAMMO 09:56
PROVIDERS: Family Provider Family Medicine; PCP Family Medicine; Referring Provider Family Medicine; Visit Provider Family Medicine
DX: Z12.31 Encounter for screening mammogram for malignant neoplasm of breast (principal); Z80.3 Family history of malignant neoplasm of breast; R92.333 Mammographic heterogeneous density, bilateral breasts
CPT/HCPCS: 77063; 77067

== ENCOUNTER → 2025-09-23 09:47 | Outpatient (CLI) | payer OTHER, SELFPAY ==
[2025-02-17 22:37] VITALS: BMI 32.9
[2025-09-23 10:17] LABS: Add Manual Diff / Slide Review NO; Hematocrit 40.2 % (36-46); Hemoglobin 13.4 g/dL (12.0-16.0); Lymphocytes Absolute Auto 1300 /uL (1100-4500); Mean Corpuscular HGB Conc 33.3 % (30-36); Mean Corpuscular Hemoglobin 28.3 PG (26-34); Mean Corpuscular Volume 85.1 fL (80-100); Platelet Count 249 X10^3/uL (150-400)
[2025-09-23 10:47] LABS: HEMOLYSIS < 15 (0-50); Iron 103 ug/dL (37-170)
[2025-09-23 10:58] LABS: Percent Iron Saturation 28 % (15-50); Total Iron Binding Capacity 371 ug/dL (265-497); Transferrin 327 mg/dL (206-381)
[2025-09-23 11:15] LABS: Ferritin 34 ng/mL (11-264)
[2025-09-23 11:37] LABS: Vitamin B12 908 pg/mL (239-931)
== END ==
PROVIDERS: Family Provider Family Medicine; PCP Family Medicine; Referring Provider Family Medicine; Visit Provider Naturopath
DX: D50.9 Iron deficiency anemia, unspecified (principal)
CPT/HCPCS: 36415; 82607; 82728; 83540; 83550; 85025